=== PATIENT | female | born 1965 | race Caucasian/White ===

== ENCOUNTER 2017-05-11 09:48 | Inpatient (IN) | payer SELFPAY ==
[2017-05-11 10:08] LABS: Base Excess (BEa) -0.4 mEq/L (0 (+/-) 2.5); Hematocrit-ABG 39.6 % (36.0-47.0); Hemoglobin (Hb) 12.2 g/dL (12.0-16.0); O2 Tension (PaO2) 199.2 mmHg (80.0-100.0); pH, Arterial 7.22 (7.35-7.45)
[2017-05-11 10:09] LABS: Analyzer IN Cardio ER; Calcium, Ionized 1.3 mmol/L (1.12-1.30); Puncture Site RRA
[2017-05-11] MEDS ORDERED: fentaNYL Citrate/PF 2,000 MCG in Sodium Chloride 0.9% 60 ML IV SCH ×2 (10:16→13:48)
[2017-05-11] MEDS ORDERED: Fentanyl 100 MCG/2 ML VIAL ONE (10:17)
[2017-05-11 10:37] LABS: Bilirubin Small (Negative); Blood, Urine Large (Negative); Clarity CLOUDY (Clear); Glucose, Urine (Dipstick) Negative (Negative); Leukocyte Moderate (Negative); Nitrite Negative (Negative); Protein, Urine (Dipstick) 100 mg/dL (Neg-Trace); Specific Gravity, Urine 1.021 (1.002-1.036); pH, Urine 5.5 (5.0-9.0)
[2017-05-11 10:38] LABS: Bacteria/HPF 4+ HPF (None Seen); RBC/HPF 0-3 HPF (0-3); WBC/HPF 21-50 HPF (0-3)
[2017-05-11 10:43] LABS: Pathc Cast-AUWi Flag 3.15 (0-2.49); Yeast-AUWi Flag 100.5 (0-25.0)
[2017-05-11 10:56] LABS: Hyaline Casts/LPF 0-3 HYALINE CAST LPF (0-3 Hyaline); Manual Microscopic Reviewed? No Path Casts Seen; Yeast-All Forms 1+ HPF (None Seen)
[2017-05-11 11:01] LABS: #Lymphocytes 0.5 thou/uL (1.20-3.40); #Monocytes 0.9 thou/uL (0.11-0.59); #Neutrophils 6.5 thou/uL (1.40-6.50); %Basophils 0.3 % (0.0-1.0); %Eosinophils 0.3 % (0.0-10.0); %Monocytes 11.7 % (0.0-10.0); %Neutrophils 81.6 % (42.0-75.0); Hemoglobin 12.1 g/dL (12.0-16.0); Mean Corpuscular HGB CONC 30.4 g/dL (32.0-36.0); Mean Corpuscular Hemoglobin 29.4 pg (27.0-31.0); Mean Corpuscular Volume 96.9 fl (81.0-99.0); Mean Platelet Volume 9.5 fL (7.4-10.4); Platelet Count 155 thou/uL (130-400); RBC Distribution Width 17.7 % (11.5-14.5)
[2017-05-11 11:21] LABS: Actual Bicarbonate (HCO3a) 24.4 mEq/L (22-26); Base Excess (BEa) -0.4 mEq/L (0 (+/-) 2.5); CO2 Tension 60.3 mmHg (35.0-45.0); Hematocrit-ABG 39.4 % (36.0-47.0); Hemoglobin (Hb) 12.2 g/dL (12.0-16.0); O2 Tension (PaO2) 80.2 mmHg (80.0-100.0); pH, Arterial 7.23 (7.35-7.45)
[2017-05-11 11:22] LABS: ALV-art Gradient 557.425 (0-20); Analyzer IN Cardio ER; Calcium, Ionized 1.3 mmol/L (1.12-1.30); Puncture Site RRA
[2017-05-11 11:26] LABS: ALT (SGPT) 315 U/L (8-55); AST (SGOT) 627 U/L (5-34); Albumin 3.6 g/dL (3.5-5.0); Alkaline Phosphatase 218 U/L (40-150); Anion Gap 14 mmol/L (10-20); BUN (Urea Nitrogen) 38 mg/dL (9.8-20.1); Bilirubin, Total 0.5 mg/dL (0.2-1.2); CK (CPK) 349 U/L (29-168); Calc. Creatinine Clearance 0 mL/min (70-130); Calcium 8.8 mg/dL (7.8-10.44); Carbon Dioxide 24 mmol/L (22-29); Chloride 110 mmol/L (98-107); Estimated GFR-MDRD 38; Globulin 2.4 g/dL (2.4-3.5); Glucose 121 mg/dL (70-105); Potassium 6.1 mmol/L (3.5-5.1); Sodium 142 mmol/L (136-145)
[2017-05-11 11:30] LABS: Troponin I 1.572 ng/mL (< 0.028)
--- NOTE | 2017-05-11 11:31 | RAD ---
PORTABLE SUPINE FRONTAL CHEST RADIOGRAPH: Date: 05-11-17 Comparison: None. History: Evaluate chest following intubation. FINDINGS: Supine imaging is provided, limiting assessment for pneumothorax and pleural fluid. A nasogastric tub e extends into the left upper quadrant. There is an endotracheal tube projecting over the tracheal ai r column, terminating at the level of the clavicles. There is mild increased density in the right hilar region, significance uncertain on portable supine imaging. There is atherosclerotic calcification in the aortic arch. No lobar consolidation or alveola r edema. IMPRESSION: Endotracheal tube and nasogastric tube as above. Mild increased density in the right perihilar region is noted, nonspecific. Follow up PA and lateral chest imaging to further evaluate right hilum is adv ised when the patient is able. POS: [facility]
--- NOTE | 2017-05-11 11:44 | CT ---
HEAD CT WITHOUT CONTRAST: Date: 05-11-17 Comparison: None. History: Respiratory distress. Intubated patient. Prior history of stroke. Technique: Serial axial CT imaging at 5 mm intervals from the vertex through the skull base without c ontrast. FINDINGS: There is evidence of prior right frontal craniotomy. There is opacification of the anterior ethmoid a ir cells on the right. The paranasal sinuses and mastoid air cells are otherwise unremarkable. There are atherosclerotic calcification of the cavernous carotid arteries. There is no displaced calvarial fracture. No intracranial hemorrhage, midline shift, or mass effect seen. There is encephalomalacia within the frontal lobe on the right with a linear area of calcification suggesting extensive prior insult on th e basis of prior infarction and/or prior trauma. IMPRESSION: Post-operative changes within the right frontal region with right frontal lobe encephalomalacia. No i ntracranial hemorrhage. POS: [facility]
[2017-05-11] MEDS ORDERED: Azithromycin 500 MG in Sodium Chloride 0.9% 250 ML 250 ML IVPB ONE (13:15)
--- NOTE | 2017-05-11 13:31 | CT ---
CT ANGIOGRAM OF THE CHEST: History: Hypoxia. Patient was intubated by a flight crew. Respiratory distress. Comparison: None. Technique: CT angiogram of the chest was performed in the axial plane. Bilateral oblique and coronal 3D reformatted images are submitted for interpretation. FINDINGS: Note is made of an endotracheal and nasogastric tube. There are coronary calcifications. Heart size i s normal. No pericardial fluid. Limited evaluation of the aorta due to inadequate contrast opacificat ion. Mild fullness of the distal thoracic aorta. Upper solid organs are grossly unremarkable. There may be periportal edema, nonspecific. There are patchy opacities throughout the lung parenchyma. Multifocal infiltrate in the right upper l obe and right lower lobe is suspected. A agency sales representative opacity in the superior segment of the right lower lobe measures 2.0 x 1.6 cm. There is asymmetric prominent hyperinflation of the left lung with respect to the contralateral side. There is no pleural effusion or pneumothorax. There are no lytic or blastic lesions in the osseous structures. Adequate contrast opacification of the pulmonary arterial system to the level of the segmental arteri es. No filling defects to suggest thromboembolism. IMPRESSION: 1. No evidence of pulmonary artery embolis to the level of the segmental arteries. 2. Multifocal opacity predominately in the right lung which may represent edema or infiltrates. Chron ic changes cannot be excluded. There is hyperinflation of the left lung. Continued surveillance is re commended. POS: [facility]
[2017-05-11] MEDS ORDERED: DISCONTINUE PREVIOUS NARCOTIC PAIN MEDICATIONS AND BENZODIAZEPINES FS SCH (13:48)
[2017-05-11] MEDS ORDERED: Propofol 1,000 MG/100 ML VIAL IV PRN (13:48)
[2017-05-11] MEDS ORDERED: Lorazepam 2 MG/ML VIAL SLOW IVP PRN (13:48)
[2017-05-11] MEDS ORDERED: Morphine 4 MG/ML VIAL IV PRN (13:50)
[2017-05-11] MEDS ORDERED: Ondansetron HCl/PF 4 MG/2 ML Vial IVP PRN (13:52)
[2017-05-11] MEDS ORDERED: Ondansetron ODT 4 MG TAB PO PRN (13:52)
[2017-05-11] MEDS ORDERED: Acetaminophen 325 MG TAB PO PRN (13:53)
[2017-05-11] MEDS ORDERED: Lacri-Lube Opth Oint 3.5 GM TUBE EA EYE PRN (14:20)
--- NOTE | 2017-05-11 14:43 | CON ---
DATE OF CONSULTATION: 05/11/2017 SERVICE: Pulmonary Medicine. REASON FOR CONSULTATION: Respiratory failure. HISTORY OF PRESENT ILLNESS: The patient is a 52-year-old female. We do not know when she was last f ound in her usual state of health. Either way, she was found down at home. She was brought to the [facility] by emergency services and intubated on the scene, because of hypoxemia. She was not protecti ng her airway. She was extraordinarily hypoxemic when she arrived here. She was sent for a CT scan. Preliminary studies have not been too terribly revealing. She has extraordinarily high oxygen requ irements. We have no information on her in our system. PAST MEDICAL HISTORY: 1. History of stroke. 2. Brain aneurysm. 3. Chronic obstructive pulmonary disease. 4. Hypertension. 5. Dyslipidemia. 6. Coronary artery disease. PAST SURGICAL HISTORY: Brain surgery. ALLERGIES: Unknown. MEDICATIONS: Unknown. INPATIENT MEDICATIONS: Reviewed. FAMILY HISTORY: Unknown. SOCIAL HISTORY: Unknown. REVIEW OF SYSTEMS: This cannot be obtained as the patient is currently intubated and under the influ ence of some sedating medication. Furthermore, she remains encephalopathic. PHYSICAL EXAMINATION: VITAL SIGNS: Afebrile, pulse 95, blood pressure 139/67, respirations 20, saturation 92% on 90% FiO2 and a PEEP of 11. GENERAL: Patient is intubated. She is under the influence of sedation, but remains encephalopathic. HEENT: Normocephalic, atraumatic. Sclerae are white. Conjunctivae pink. Oral and nasal mucosa is moist without lesions. LUNGS: Poor air entry with a prolonged expiratory phase. She is not moving enough air to appreciate adventitious sounds. HEART: Normal rate. Regular. ABDOMEN: Soft, nontender, nondistended. Bowel sounds are positive. MUSCULOSKELETAL: No cyanosis or clubbing. There is 1+ pitting in the bilateral lower extremities. NEUROLOGIC: Her right pupil is equal, round, and reactive. She coughs and overbreathe the ventilato r. The left pupil does not work, but it is not symmetric or circular suggesting she may have had a p revious eye injury or trauma. She is not currently responding to noxious stimuli. GENITOURINARY: Jackson catheter in place. LABORATORY DATA: WBC 8.0, hemoglobin 12.1, platelets 155,000. PH 7.23, pCO2 of 60, pO2 of 80 on 100 % FiO2 and a PEEP of 5. AST and ALT are elevated. Alkaline phosphatase is also elevated, but less d ramatically so. Troponin 1.5. BNP 381, lactate 1.0. Potassium 6.1, sodium 142. Chloride 110. Cre atinine 1.44. Baseline is unknown. Urinalysis is positive for white blood cells, leukocyte esterase , bilirubin, and blood. There are negative nitrites, 4+ urine bacteria is present. IMAGIN. CT of the brain demonstrates postoperative changes in the right frontal region with right frontal lobe encephalomalacia. No intracranial hemorrhage is identified. 2. CTA of the chest demonstrates no evidence of a pulmonary embolism. She has an infiltrate in the right lower lobe, superior segment, and inferior segment. She also has a small infiltrate in the dep endent regions of the right middle lobe. The right upper lobe appears to be spared. There are emphy sematous changes throughout bilateral lung sanchez, otherwise. ASSESSMENT: 1. Acute hypoxic and hypercapnic respiratory failure. 2. Chronic obstructive pulmonary disease with exacerbation. 3. Right ventricular heart failure, apparent. 4. Elevated transaminases. 5. Qmt-EU-zdypnnsdi myocardial infarction. PLAN: Cardiology consultation will be placed. We will treat her COPD exacerbation and also put her on antibiotics for community-acquired pneumonia. We will initiate a dose of Lasix. We will do [facility] hoscopy to assess for an endobronchial lesion. I will repeat an EKG given some ST changes on our tel emetry that were not evident earlier on the EKG. Urine drug screen will be obtained. Pulmonary Crit ical Care will continue to follow while the patient remains in this location. I do suspect that the elevated AST and ALT are coming from right-sided volume overload, as demonstrated on the CT of the est. Echo will be obtained in a couple of days.
[2017-05-11] MEDS ORDERED: Furosemide 40 MG/4 ML VIAL SLOW IVP SCH (14:45)
[2017-05-11 15:13] LABS: Troponin I 3.717 ng/mL (< 0.028)
--- NOTE | 2017-05-11 16:18 | ULT ---
RIGHT UPPER QUADRANT ULTRASOUND: 05/11/17 HISTORY: Elevated LFTs. FINDINGS: The liver measures 16 cm in length. No focal mass is identified. The patient is post cholecystectomy. The common duct measures 16 mm in diameter. There is mild intrahepatic biliary ductal dilatation. A small amount of free fluid in seen adjacent to the liver. The right kidney is unremarkable. No free f luid is seen in Melchor's pouch. Visualized portions of the pancreas are unremarkable. IMPRESSION: 1. Status post cholecystectomy with biliary ductal dilation. 2. Small amount of free fluid adjacent to the liver. POS: [facility]
[2017-05-11 16:55] LABS: Amphetamine Not Detected (NotDetected); Barbiturates Screen Not Detected (NotDetected); Benzodiazepine Screen Detected (NotDetected); Cocaine Metabolite Screen Not Detected (NotDetected); Medtox Control Line Valid? VALID (VALID); Medtox Reader # READER 1; Methadone Not Detected (NotDetected); Methamphetamine Not Detected (NotDetected); Opiate Screen Not Detected (NotDetected); Oxycodone Screen Not Detected (NotDetected); Phencyclidine (PCP) Not Detected (NotDetected); THC/Cannabinoid Screen Not Detected (NotDetected); Tricyclic Screen Not Detected (NotDetected)
[2017-05-11] MEDS ORDERED: ISOVUE-370 76%-LOCM 1 ML ONE (16:55)
[2017-05-11 17:26] LABS: Troponin I 7.193 ng/mL (< 0.028)
[2017-05-11] MEDS ORDERED: Piperacillin/Tazobactam 2.25 GM in Sodium Chloride 0.9% 100 ML IVPB SCH (18:00)
[2017-05-11] MEDS: Piperacillin/Tazobactam 4.5 GM in Sodium Chloride 0.9% 100 ML IVPB SCH (18:02)
[2017-05-11] MEDS ORDERED: Enoxaparin Sodium 60 MG/0.6 ML SYRINGE SC SCH (18:30)
--- NOTE | 2017-05-11 18:31 | HP ---
DATE OF ADMISSION: 05/11/2017 CHIEF COMPLAINT: The patient found unconscious at home. HISTORY OF PRESENT ILLNESS: This is a 52-year-old white female with a known history of COPD, chronic smoker, and history of home oxygen. The patient had an episode at home where EMS was called by catherine hope and when the EMS arrived, the patient was slumped over in the chair, not breathing, and she was immediately intubated, but had a normal pulse and had very low blood pressures in 50/28, so the annmarie nt was immediately brought to the ER. She consistently had low saturations of 64% even with intubati on. With suspicion for aspiration, the patient was immediately taken for bronchoscopy as Dr. Keane was consulted from the ER. During bronchoscopy, it was noted on the report that the patient had a p ossible aspiration with food particles being extracted. The patient had a very low blood pressure in 50/28, he was started on Levophed drip in the ER after giving a bunch of fluids. The patient also h ad elevated troponin of 1.59 and there was also suspicion for pulmonary embolism, so CT of the chest was done which ruled out any evidence of pulmonary embolism. Dr. Medeiros was consulted from the ER for elevated troponins and the patient had a normal EKG. Echo was good with good ejection fraction. The patient was then transferred to the ICU and was closely monitored and she was on Levophed drip. I discussed with the patient's mother at home who actually mentioned the patient had a power of atto rney, who is her [id number], but again spoke to the patient's oldest daughter who said the annmarie reyes did not have any medical power of senior trial attorney and explained that the patient's mother is not a reliab le historian. PAST MEDICAL HISTORY: Chronic obstructive pulmonary disease, history of stroke, history of brain ane urysm, history of hypertension, history of dyslipidemia, history of coronary artery disease. PAST SURGICAL HISTORY: Brain surgery in the past. ALLERGIES: Unknown. MEDICATIONS: Unknown. SOCIAL HISTORY: Unknown. Unable to get any of these above histories because no family member availa ble at the time of seeing the patient. SOCIAL HISTORY: The patient lives on her own in the apartment. She has a history of smoking. No hi story of alcohol. No history of illicit drug use. REVIEW OF SYSTEMS: Unable to obtain as the patient is intubated and no other family members was jose ramon at the time of patient examination while the patient in the ER. PHYSICAL EXAMINATION: VITAL SIGNS: The patient's blood pressures 58/28, heart rate of 130, respiratory rate of 18, and sat uration was 98% on 100% FIO2. HEENT: Atraumatic, normocephalic. PERRLA. Extraocular movements could not be assessed as the patie nt is sedated. CARDIOVASCULAR: S1, S2 normal. No murmurs, rubs or gallops. LUNGS: Bilateral air entry was equal. No wheezing, no crackles. ABDOMEN: Soft, nontender, no guarding, no rebound tenderness. Bowel sounds normal. MUSCULOSKELETAL: No calf tenderness. No pedal edema. No joint tenderness, no joint swelling. SKIN: No cyanosis, no erythema, no rash, no pallor. NEUROLOGIC: Could not be done. PSYCHIATRIC: Could not be done. NODES: No lymphadenopathy was noted. LABORATORY DATA: WBC 8.0, hemoglobin is 12.1, hematocrit is 39.8, platelets are 155. Sodium is 142, potassium is 6.1, BUN is 38, creatinine is 1.44. Troponin 3.7 and another level was 7.19. BNP was 381.2. A 2D echo was done and had an ejection fraction of 35%-40%. IMAGING: The brain CT was done and was unremarkable. Chest x-ray was done showing an evidence of ri ght-sided infiltrate with complete opacification of the right side. CTA chest was done showing no ev idence of any pulmonary embolism, but shows multifocal opacities predominant in the right lung. ASSESSMENT AND PLAN: 1. Acute hypoxic respiratory failure. 2. Septic shock. 3. Right lung aspiration pneumonia. 4. Chronic obstructive pulmonary disease. 5. Non-ST elevation myocardial infarction. 6. History of stroke. PLAN: 1. Plan is to continue to monitor the patient in the ICU and follow with critical care recommendatio ns. We will continue the mechanical ventilation at this time and the patient's code status is FULL C ODE based on discussion with the patient's daughter. 2. The patient is septic with elevated lactic acid. We will continue the patient on Levophed drip a t this time and continue IV antibiotics. The patient has been started on levofloxacin, Zosyn, and va ncomycin to cover major bacteria. 3. The patient has evidence of right aspiration pneumonia based on the bronchoscopy findings. 4. We will continue to follow critical care recommendations. 5. The patient has markedly elevated troponins, most likely either this could be a demand ischemia o r there could be a myocardial infarction going on at this time. Dr. Medeiros has been consulted and seen the patient in the ER. During the echo, we will follow with his recommendations at this time. The patient is very critical at this time because of the worsening troponins and low blood pressures and severe hypoxia. 6. The patient has elevated potassium. We will give Kayexalate though the NG tube. 7. History of stroke. 8. History of COPD. We will start the patient on stress. We will continue to follow with pulmonary recommendations. The patient may need stress dose of steroids, do not know her home medications. 9. DVT prophylaxis, Lovenox. We will continue with 1 mg/kg Lovenox. I spent 75 minutes of this patient of this 1-hour was critical care time.
[2017-05-11] MEDS ORDERED: Aspirin 325 MG TAB PER TUBE SCH (18:45)
[2017-05-11] MEDS ORDERED: Vancomycin HCl 1 GM in Sodium Chloride 0.9% 250 ML 250 ML IVPB SCH (21:00)
[2017-05-11] MEDS ORDERED: Atorvastatin Calcium 40 MG TAB PO SCH (21:00)
[2017-05-12 05:31] LABS: #Lymphocytes 0.5 thou/uL (1.20-3.40); #Monocytes 0.5 thou/uL (0.11-0.59); #Neutrophils 5.4 thou/uL (1.40-6.50); %Basophils 0.1 % (0.0-1.0); %Eosinophils 0.1 % (0.0-10.0); %Lymphocytes 7.8 % (21.0-51.0); %Monocytes 8.3 % (0.0-10.0); %Neutrophils 83.6 % (42.0-75.0); Hemoglobin 12.5 g/dL (12.0-16.0); Mean Corpuscular HGB CONC 31.6 g/dL (32.0-36.0); Mean Corpuscular Hemoglobin 30.3 pg (27.0-31.0); Platelet Count 133 thou/uL (130-400); RBC Distribution Width 17.7 % (11.5-14.5); Red Blood Cell (RBC) Count 4.11 mill/uL (4.20-5.40); White Blood Cell (WBC) Count 6.4 thou/uL (4.8-10.8)
[2017-05-12 05:38] LABS: Magnesium 2.2 mg/dL (1.6-2.6); Phosphorus 4.4 mg/dL (2.3-4.7)
[2017-05-12] MEDS: Piperacillin/Tazobactam 4.5 GM in Sodium Chloride 0.9% 100 ML IVPB SCH ×6 (06:00→23:58)
[2017-05-12 07:47] LABS: Base Excess (BEa) -0.6 mEq/L (0 (+/-) 2.5); Hematocrit-ABG 37.1 % (36.0-47.0); Hemoglobin (Hb) 11.7 g/dL (12.0-16.0); O2 Tension (PaO2) 108.1 mmHg (80.0-100.0); pH, Arterial 7.32 (7.35-7.45)
[2017-05-12 07:48] LABS: Calcium, Ionized 1.3 mmol/L (1.12-1.30); Puncture Site L.R.
[2017-05-12] MEDS: Aspirin 325 MG TAB PO SCH (08:37)
[2017-05-12] MEDS: Atorvastatin Calcium 40 MG TAB PO SCH (08:37)
[2017-05-12] MEDS: Enoxaparin Sodium 60 MG/0.6 ML SYRINGE SC SCH ×2 (08:37→21:21)
[2017-05-12] MEDS: Furosemide 40 MG/4 ML VIAL SLOW IVP SCH (08:38)
[2017-05-12] MEDS ORDERED: Famotidine 40 MG/4 ML VIAL SLOW IVP SCH (09:00)
[2017-05-12] MEDS ORDERED: Lisinopril 2.5 MG TAB PO SCH (09:00)
--- NOTE | 2017-05-12 09:36 | RAD ---
CHEST ONE VIEW: History: 52-year-old female with history of respiratory insufficiency. FINDINGS: NG tube and endotracheal tubes in place. Atherosclerosis of the aorta. Minimal stable increased linea r and interstitial markings. No confluent pneumonia, overt edema, or pleural effusion. IMPRESSION: Stable chest. Continued short term follow up. POS: [facility]
--- NOTE | 2017-05-12 09:40 | CON ---
DATE OF CONSULTATION: 05/11/2017 ADMITTING PHYSICIAN: Bj Mckeon M.D. HISTORY OF PRESENT ILLNESS: The patient is a 52-year-old woman who suffered a respiratory arrest and required emergent intubation. The patient at this time is intubated. She however is responsive. The patient has apparently a long medical history. She has a previous history of apparently a subarachnoid hemorrhage. She has also a previous history of apparently cerebrovascular accident and a brain aneurysm. She also has a history of apparently coronary artery disease. The patient at this time is responsive. PAST MEDICAL HISTORY: CVA, brain aneurysm, hypertension. PAST SURGICAL HISTORY: SOCIAL HISTORY: Unknown. FAMILY HISTORY: Unknown. MEDICATIONS: Unknown. PHYSICAL EXAMINATION: GENERAL: Ill-appearing woman with a blood pressure of 96/61. NECK: Full. LUNGS: Coarse breath sounds bilateral. HEART: Regular rate and rhythm, normal S1, S2. ABDOMEN: Nondistended. LABORATORY DATA AND IMAGING: Sodium 142, potassium 6.1, chloride 110, bicarbonate 24, BUN 38, creatinine is 1.4, ALT was 315. CPK-MB 15. Troponin 1.5. White blood cell count 8.0, hemoglobin 12.1, hematocrit 39.8, platelets were 155. Her initial EKG revealed normal sinus rhythm with lead misplacement, but no acute ST-T wave changes. Follow up EKG revealed normal sinus rhythm with left ventricular hypertrophy. AST was 627. IMPRESSION: 1. Respiratory arrest. 2. History of a brain aneurysm. 3. History of cerebrovascular accident. 4. Non-ST elevation myocardial infarction. 5. Elevated left ventricular function test. PLAN: The patient presented with a respiratory arrest and she was noted to have evidence of elevated cardiac enzymes. Review of the EKG revealed no acute ST-T wave changes requiring acute emergent invasive evaluation. An echocardiogram was obtained in the emergency room. She was found to have moderate decrease in left ventricular systolic function with a markedly enlarged right ventricle. The patient underwent an emergent bronchoscopy. At this time, the patient is hypotensive, so we would avoid beta carito and JUANI inhibitor therapy. We will follow this patient with you through her hospitalization. Further recommendations to follow. VEENAD
[2017-05-12 09:50] LABS: Anion Gap 13 mmol/L (10-20); BUN (Urea Nitrogen) 47 mg/dL (9.8-20.1); Calc. Creatinine Clearance 46 mL/min (70-130); Carbon Dioxide 25 mmol/L (22-29); Chloride 111 mmol/L (98-107); Estimated GFR-MDRD 40; Glucose 106 mg/dL (70-105); Potassium 4.2 mmol/L (3.5-5.1); Sodium 145 mmol/L (136-145)
[2017-05-12 09:51] LABS: ALT (SGPT) 227 U/L (8-55); AST (SGOT) 171 U/L (5-34); Albumin 3.3 g/dL (3.5-5.0); Alkaline Phosphatase 138 U/L (40-150); Bilirubin, Direct 0.2 mg/dL (0.1-0.3); Bilirubin, Total 0.4 mg/dL (0.2-1.2); Protein, Total 5.5 g/dL (6.0-8.3)
[2017-05-12] MEDS: Nicotine 21 MG PATCH TOP SCH (13:36)
--- NOTE | 2017-05-12 14:38 | PDOC.PN ---
- Subjective Encounter Start Date: 05/12/17 Encounter Start Time: 14:00 patient is seen today, alert but disoriented. Discussed with daughter at bedside , Explained confusion is from UTI and Sepsis. - Objective Resuscitation Status: Resuscitation Status FULL:Full Resuscitation MAR Reviewed: Yes Vital Signs & Weight: Vital Signs (12 hours) Temp Pulse Resp BP Pulse Ox 05/12/17 13:26 87 27 H 96 05/12/17 12:00 98.1 F 93 L 05/12/17 10:00 99 18 156/81 H 05/12/17 09:18 86 149/80 H 05/12/17 08:00 15 05/12/17 07:34 88 130/75 05/12/17 07:33 88 15 96 05/12/17 07:15 98.3 F 92 15 95 05/12/17 07:00 98.3 F 05/12/17 06:00 15 05/12/17 04:00 99.2 F 15 Weight Weight 136 lb 3.931 oz Most Recent Monitor Data Heart Rate from ECG 94 NIBP 157/80 NIBP BP-Mean 123 Respiration from ECG 26 SpO2 89 I&O: 05/11/17 05/12/17 05/13/17 06:59 06:59 06:59 Intake Total 260 360 Output Total 1675 785 Balance -1415 -425 Result Diagrams: 05/12/17 04:44 05/12/17 09:20 Radiology Reviewed by me: Yes Phys Exam - Physical Examination HEENT: PERRLA, moist MMs Neck: no nodes, no JVD Respiratory: wheezing present Cardiovascular: RRR, no significant murmur Gastrointestinal: soft, non-tender Musculoskeletal: no edema, pulses present Neurological: non-focal, normal sensation Lymphatic: no nodes Psychiatric: normal affect Skin: no rash, normal turgor Dx/Plan (1) Septic shock Code(s): A41.9 - SEPSIS, UNSPECIFIED ORGANISM; R65.21 - SEVERE SEPSIS WITH SEPTIC SHOCK Status: Acute Comment: Resolved Now, off of Levofed (2) Acute UTI Code(s): N39.0 - URINARY TRACT INFECTION, SITE NOT SPECIFIED Status: Acute Comment: Pt will be continued on IV antibiotics at this Time, WBC remains Normal. (3) Acute and chronic respiratory failure with hypoxia Code(s): J96.21 - ACUTE AND CHRONIC RESPIRATORY FAILURE WITH HYPOXIA Status: Acute Comment: Remains on nasal Canula, pt is Extubnated this Morning, she is [place], can be moved to Floor if ok with Pulmonary. (4) Aspiration pneumonia Code(s): J69.0 - PNEUMONITIS DUE TO INHALATION OF FOOD AND VOMIT Status: Acute Comment: Bronch found a Food particles in right Bronchi. No evidence of pneumonia noted now. Continue with Neb treatments. (5) COPD (chronic obstructive pulmonary disease) Status: Acute Comment: Stable, no exacerbation now,. CO2 normal. - Plan cont current plan of care, plan discussed w/ family, continue antibiotics, PT/OT , social science research assistant, speech therapy, respiratory therapy, incentive spirometry, DVT proph w/lovenox * . - Discharge Day Encounter end time: 15:05 Review of Systems - Review of Systems Eyes: negative: Pain, Vision Change, Conjunctivae Inflammation, Eyelid Inflammation, Redness, Other ENT: negative: Ear Pain, Ear Discharge, Nose Pain, Nose Discharge, Nose Congestion, Mouth Pain, Mouth Swelling, Throat Pain, Throat Swelling, Other Respiratory: negative: Cough, Dry, Shortness of Breath, Hemoptysis, SOB with Excertion, Pleuritic Pain, Sputum, Wheezing Cardiovascular: negative: chest pain, palpitations, orthopnea, paroxysmal nocturnal dyspnea, edema, light headedness, other Genitourinary: negative: Dysuria, Frequency, Incontinence, Hematuria, Retention , Other - Medications/Allergies Allergies/Adverse Reactions: Allergies Allergy/AdvReac Type Severity Reaction Status Date / Time No Allergy Information Allergy Unverified 05/11/17 10:16 Available Medications: Current Medications Albuterol/Ipratropium (Duoneb) 3 ml NEB [id number] [facility] Last Admin: 05/12/17 13:26 Dose: 3 ml Aspirin (Aspirin) 325 mg PO QAM-WM [facility] Last Admin: 05/12/17 08:37 Dose: 325 mg Atorvastatin Calcium (Lipitor) 40 mg PO DAILY [facility] Last Admin: 05/12/17 08:37 Dose: 40 mg Enoxaparin Sodium (Lovenox) 60 mg SC 0900,2100 [facility] Last Admin: 05/12/17 08:37 Dose: 60 mg Famotidine (Pepcid) 20 mg SLOW IVP DAILY [facility] Last Admin: 05/12/17 10:18 Dose: 20 mg Furosemide (Lasix) 40 mg SLOW IVP DAILY [facility] Last Admin: 05/12/17 08:38 Dose: 40 mg Fentanyl Citrate 2,000 mcg/ (Sodium Chloride) 100 mls @ 0 mls/hr IV INF CHRISTY; Per Protocol PRN Reason: Protocol Stop: 06/10/17 13:48 Fentanyl Citrate (Fentanyl Bolus) 250 mls @ 0 mls/hr IVPB PRN PRN; As Directed PRN Reason: Breakthrough pain Stop: 06/10/17 13:48 Piperacillin Sod/Tazobactam (Sod 4.5 gm/ Sodium Chloride) 100 mls @ 200 mls/hr IVPB Q6HR [facility] Last Admin: 05/12/17 11:32 Dose: 100 mls Lisinopril (Zestril) 2.5 mg PO DAILY [facility] Last Admin: 05/12/17 09:18 Dose: 2.5 mg Methylprednisolone Sodium Succinate (Solu-Medrol) 40 mg IVP DAILY [facility] Last Admin: 05/12/17 08:38 Dose: 40 mg Mineral Oil/White Petrolatum (Lacri-Lube Ointment) 0 gm EA EYE PRN PRN PRN Reason: Dry Eyes Nicotine (Nicoderm Patch) 21 mg TOP Q24HR [facility] Last Admin: 05/12/17 13:36 Dose: 21 mg Propofol (Diprivan) 1,000 mg IV INF PRN; Protocol PRN Reason: TO ACHIEVE JACOME SCORE 2-3 Stop: 06/10/17 13:48 Last Admin: 05/11/17 16:43 Dose: 1,000 mg Sodium Chloride (Flush - Normal Saline) 10 ml IVF Q12HR [facility] Last Admin: 05/12/17 08:37 Dose: 10 ml Sodium Chloride (Flush - Normal Saline) 10 ml IVF PRN PRN PRN Reason: Saline Flush Last Admin: 05/11/17 14:48 Dose: 10 ml
--- NOTE | 2017-05-12 20:53 | PRG ---
DATE OF SERVICE: 05/12/2017 SERVICE: Pulmonary Medicine. INTERVAL HISTORY: The patient is doing fine from a respiratory standpoint. This morning, she is rosie ke, but sleepy on a sedation holiday. When she wakes up a touch more, we will see whether or not she tolerated a spontaneous breathing trial. Her sats were a little bit marginal and slightly high requ irements. That being said, it was probably bad data. The probe was on her forehead and when we move d it to her ear, they actually improved a lot. There were no significant overnight events. PHYSICAL EXAMINATION: VITAL SIGNS: Afebrile, pulse 89, blood pressure 125/51, respirations 18, saturation 97% on 41% FIO2 and a PEEP of 5. GENERAL: Patient is somnolent. HEENT: Normocephalic, atraumatic. Sclerae are white, conjunctivae pink. Oral and nasal mucosa mois t without lesions. LUNGS: Decent air entry. There is not much of a prolonged expiratory phase. Minimal wheezing is pr esent. No rhonchi or crackles are appreciated. HEART: Normal rate, regular. ABDOMEN: Soft, nontender, nondistended. Bowel sounds are positive. MUSCULOSKELETAL: No cyanosis or clubbing. No pitting in the bilateral lower extremities. NEUROLOGIC: Nonfocal. LABORATORY DATA: WBC 6.4, hemoglobin 12.5, platelets 133,000. PH 7.32, PCO2 51, pO2 108. This was on 57% FiO2 and a PEEP of 9 at that time. Creatinine 1.38, which is gently down trending, BUN 47 and uptrending. Basic metabolic profile is otherwise unremarkable. Sodium 142. AST and ALT are precip itously down trending. Alkaline phosphatase has returned to the normal range. Troponin has increase d to 7.1, CRP 11.38. Urine drug screen was only positive for benzodiazepines, which she likely got i n the intubation process. IMAGIN. Chest x-ray demonstrates a stable chest. Endotracheal tube and enteric catheter are in good posi tion. No confluent consolidation is identified. 2. Echocardiogram demonstrates 35%-40% ejection fraction with akinesis of the apical wall of the lef t ventricle and a moderate concentric left ventricular hypertrophy. ASSESSMENT: 1. Acute hypoxic and hypercapnic respiratory failure, improving dramatically. 2. Chronic obstructive pulmonary disease with acute exacerbation. 3. Acute on chronic systolic and diastolic heart failure. 4. Non-ST elevation myocardial infarction. 5. Community-acquired pneumonia, likely following overt aspiration event. 6. Aspiration of hamburger meat. PLAN: The patient is going to complete her spontaneous breathing trial. If she meets criteria, extu bation will be considered in a short order. Pulmonary and Critical Care will continue to follow yadi shea we treat her COPD exacerbation and community-acquired pneumonia. Agree with Cardiology consultatio n. CRITICAL CARE TIME: 30 minutes.
[2017-05-13] MEDS ORDERED: HYDROcodone/Acetaminophen 10/325 mg Tablet PO SCH (05:30)
[2017-05-13 05:36] LABS: ALT (SGPT) 146 U/L (8-55); AST (SGOT) 73 U/L (5-34); Albumin 3.1 g/dL (3.5-5.0); Alkaline Phosphatase 100 U/L (40-150); Anion Gap 8 mmol/L (10-20); BUN (Urea Nitrogen) 38 mg/dL (9.8-20.1); Bilirubin, Direct 0.2 mg/dL (0.1-0.3); Bilirubin, Total 0.3 mg/dL (0.2-1.2); Calc. Creatinine Clearance 70 mL/min (70-130); Calcium 9.2 mg/dL (7.8-10.44); Carbon Dioxide 33 mmol/L (22-29); Chloride 109 mmol/L (98-107); Estimated GFR-MDRD 67; Glucose 92 mg/dL (70-105); Potassium 3.7 mmol/L (3.5-5.1); Protein, Total 5.1 g/dL (6.0-8.3); Sodium 146 mmol/L (136-145)
[2017-05-13] MEDS: Piperacillin/Tazobactam 4.5 GM in Sodium Chloride 0.9% 100 ML IVPB SCH (05:43)
[2017-05-13 05:56] LABS: #Lymphocytes 0.7 thou/uL (1.20-3.40); #Monocytes 0.4 thou/uL (0.11-0.59); #Neutrophils 3.1 thou/uL (1.40-6.50); %Basophils 0.3 % (0.0-1.0); %Eosinophils 0.5 % (0.0-10.0); %Lymphocytes 15.6 % (21.0-51.0); %Monocytes 9.6 % (0.0-10.0); %Neutrophils 74.1 % (42.0-75.0); Band 3 % (5-11); Hemoglobin 10.3 g/dL (12.0-16.0); Hypochromia SLIGHT = 6-15 cells (100X) (0-5/hpf); Lymphocytes 8 % (21-51); MDiff Complete? YES; Mean Corpuscular HGB CONC 31.2 g/dL (32.0-36.0); Mean Corpuscular Hemoglobin 29.1 pg (27.0-31.0); Mean Corpuscular Volume 93.2 fl (81.0-99.0); Mean Platelet Volume 8.9 fL (7.4-10.4); Monocytes 9 % (0-10); Neutrophil 75 % (42-75); PLT Morphology Comment Appears Decreased; Platelet Count 105 thou/uL (130-400); RBC Distribution Width 17.4 % (11.5-14.5); Reactive Lymphocytes 5 % (0-10); Red Blood Cell (RBC) Count 3.55 mill/uL (4.20-5.40); White Blood Cell (WBC) Count 4.2 thou/uL (4.8-10.8)
[2017-05-13] MEDS: Atorvastatin Calcium 40 MG TAB PO SCH (08:35)
[2017-05-13] MEDS: Furosemide 40 MG/4 ML VIAL SLOW IVP SCH (08:36)
[2017-05-13] MEDS: Enoxaparin Sodium 40 MG/0.4 ML SYRINGE SC SCH ×2 (08:53→20:34)
[2017-05-13] MEDS: Clopidogrel Bisulfate 75 MG TAB PO SCH (08:53)
[2017-05-13] MEDS: Lisinopril 5 MG TAB PO SCH ×2 (08:53→20:33)
[2017-05-13] MEDS ORDERED: Amiodarone 200 MG TAB PO SCH (09:00)
--- NOTE | 2017-05-13 10:03 | PRG ---
DATE OF SERVICE: 05/13/2017 SERVICE: Pulmonary Medicine. INTERVAL HISTORY: The patient is doing fine from cardiovascular and respiratory standpoint. She is breathing very comfortably this morning. She tolerated extubation quite well yesterday. Otherwise, there has been no interval change to her condition. PHYSICAL EXAMINATION: VITAL SIGNS: Afebrile, pulse 98, blood pressure 146/73, respirations 20, saturation 98% on 2 liters nasal cannula. GENERAL: The patient is awake and alert. No apparent distress. LUNGS: Decent air entry. The crackles are gone. There is prolonged expiratory phase. A little bit of a polyphonic wheezing still present. Rhonchi are better. HEART: Normal rate and regular. ABDOMEN: Soft, nontender, nondistended. Bowel sounds are positive. MUSCULOSKELETAL: No cyanosis or clubbing. There is trace to 1+ pitting in the bilateral lower extre mities. NEUROLOGIC: Grossly nonfocal. LABORATORY DATA: WBC 4.2, hemoglobin 33.0, and platelets 105,000. Creatinine 0.88 and improving. B UN 37, bicarbonate 33, which bumped up significantly, sodium 146. AST and ALT continued to improve. Blood cultures x2, respiratory culture, and urine culture are unremarkable. ASSESSMENT: 1. Acute hypoxic and hypercapnic respiratory failure, improving. 2. Chronic obstructive pulmonary disease with acute exacerbation. 3. Acute on chronic systolic and diastolic heart failure. 4. Non-ST elevation myocardial infarction. 5. Community-acquired pneumonia following overt aspiration event. 6. Aspiration of hamburger meat. DISCUSSION AND PLAN: I talked to the patient today, she does remember choking on a hamburger. Her m om was giving her some narcotic pain medications. It is my suspicion that patient may have taken a l ittle too much and got extra sleepy. Her mom was giving her these medications for restless legs synd hesham so far as the patient has suggested to me. Either way, she is doing fairly well. We are going to continue antibiotics, nebulized medications, and steroids. She can be transitioned to telemetry u nit. Pulmonary and Critical Care will continue to follow.
--- NOTE | 2017-05-13 15:01 | PDOC.PN ---
- Subjective Encounter Start Date: 05/13/17 Encounter Start Time: 13:00 Patient is seen today, c/o Right neck pain and back pain, She is Eating her lunch at this time. Alert and oriented. - Objective Resuscitation Status: Resuscitation Status FULL:Full Resuscitation MAR Reviewed: Yes Vital Signs & Weight: Vital Signs (12 hours) Temp Pulse Resp BP Pulse Ox 05/13/17 13:13 83 20 92 L 05/13/17 12:00 98.3 F 05/13/17 08:53 98 146/73 H 05/13/17 07:59 99 05/13/17 07:57 78 18 99 05/13/17 07:17 98.1 F 73 15 98 05/13/17 07:00 98.1 F 05/13/17 04:00 98.0 F Weight Weight 133 lb 2.547 oz Most Recent Monitor Data Heart Rate from ECG 74 NIBP 165/80 NIBP BP-Mean 101 Respiration from ECG 19 SpO2 97 I&O: 05/12/17 05/13/17 05/14/17 06:59 06:59 06:59 Intake Total 260 1700 240 Output Total 1677 1845 1900 Balance -5871 -958 -9067 Result Diagrams: 05/13/17 05:03 05/13/17 05:03 Radiology Reviewed by me: Yes Phys Exam - Physical Examination HEENT: PERRLA, moist MMs Neck: no nodes, no JVD Respiratory: no wheezing, no rales Cardiovascular: RRR, no significant murmur Gastrointestinal: soft, non-tender, no distention Musculoskeletal: no edema, pulses present Neurological: non-focal, normal sensation Lymphatic: no nodes Skin: no rash, normal turgor Dx/Plan (1) Septic shock Code(s): A41.9 - SEPSIS, UNSPECIFIED ORGANISM; R65.21 - SEVERE SEPSIS WITH SEPTIC SHOCK Status: Resolved Comment: Resolved Now, off of Levofed (2) Acute UTI Code(s): N39.0 - URINARY TRACT INFECTION, SITE NOT SPECIFIED Status: Acute Comment: Pt will be continued on IV antibiotics at this Time, WBC remains Normal. Cultures Still pending. No growth yet. pt is more alert atoday. (3) Acute and chronic respiratory failure with hypoxia Code(s): J96.21 - ACUTE AND CHRONIC RESPIRATORY FAILURE WITH HYPOXIA Status: Acute Comment: Remains on nasal Canula, she is [place], can be moved to Floor if ok with Pulmonary. (4) Aspiration pneumonia Code(s): J69.0 - PNEUMONITIS DUE TO INHALATION OF FOOD AND VOMIT Status: Acute Comment: Bronch found a Food particles in right Bronchi. No evidence of infiltrate noted now. Continue with Neb treatments. Continue to treat as aspiration pneumonia. (5) COPD (chronic obstructive pulmonary disease) Status: Acute Comment: Stable, no exacerbation now,. CO2 normal. - Plan cont current plan of care, continue antibiotics, social media content specialist, speech therapy , respiratory therapy, incentive spirometry, out of bed/ambulate, DVT proph w/ lovenox * . - Discharge Day Encounter end time: 13:35 Review of Systems - Review of Systems Constitutional: negative: fever, chills, sweats, weakness, malaise, other Eyes: negative: Pain, Vision Change, Conjunctivae Inflammation, Eyelid Inflammation, Redness, Other ENT: negative: Ear Pain, Ear Discharge, Nose Pain, Nose Discharge, Nose Congestion, Mouth Pain, Mouth Swelling, Throat Pain, Throat Swelling, Other Respiratory: negative: Cough, Dry, Shortness of Breath, Hemoptysis, SOB with Excertion, Pleuritic Pain, Sputum, Wheezing Cardiovascular: negative: chest pain, palpitations, orthopnea, paroxysmal nocturnal dyspnea, edema, light headedness, other Gastrointestinal: negative: Nausea, Vomiting, Abdominal Pain, Diarrhea, Constipation, Melena, Hematochezia, Other Musculoskeletal: negative: Neck Pain, Shoulder Pain, Arm Pain, Back Pain, Hand Pain, Leg Pain, Foot Pain, Other Skin: negative: Rash, Lesions, Barney, Bruising, Other - Medications/Allergies Allergies/Adverse Reactions: Allergies Allergy/AdvReac Type Severity Reaction Status Date / Time No Known Allergies Allergy Unverified 05/12/17 19:47 Medications: Current Medications Albuterol/Ipratropium (Duoneb) 3 ml NEB [id number] [facility] Last Admin: 05/13/17 13:13 Dose: 3 ml Amoxicillin/Clavulanate Potassium (Augmentin) 875 mg PO Q12HR [facility] Stop: 05/17/17 21:01 Aspirin (Aspirin Chewable) 81 mg PO QAM-WM [facility] Last Admin: 05/13/17 08:53 Dose: 81 mg Atorvastatin Calcium (Lipitor) 40 mg PO DAILY [facility] Last Admin: 05/13/17 08:35 Dose: 40 mg Clopidogrel Bisulfate (Plavix) 75 mg PO DAILY [facility] Last Admin: 05/13/17 08:53 Dose: 75 mg Enoxaparin Sodium (Lovenox) 40 mg SC 0900,2100 [facility] Last Admin: 05/13/17 08:53 Dose: 40 mg Furosemide (Lasix) 40 mg PO DAILY-AC [facility] Gabapentin (Neurontin) 300 mg PO HS [facility] Lisinopril (Zestril) 5 mg PO BID [facility] Last Admin: 05/13/17 08:53 Dose: 5 mg Nicotine (Nicoderm Patch) 21 mg TOP Q24HR [facility] Last Admin: 05/12/17 13:36 Dose: 21 mg Prednisone (Prednisone) 40 mg PO QAM-WM [facility] Stop: 05/16/17 08:01 Sodium Chloride (Flush - Normal Saline) 10 ml IVF Q12HR [facility] Last Admin: 05/13/17 09:04 Dose: 10 ml Sodium Chloride (Flush - Normal Saline) 10 ml IVF PRN PRN PRN Reason: Saline Flush Last Admin: 05/11/17 14:48 Dose: 10 ml
--- NOTE | 2017-05-13 16:53 | OP ---
DATE OF SERVICE: 05/13/2017 SERVICE: Pulmonary Medicine. PROCEDURE: Fiberoptic bronchoscopy with: 1. Visual airway inspection. 2. Bronchoalveolar lavage from the right lower lobe. 3. Therapeutic bronchoscopy with removal of foreign body. PREPROCEDURE DIAGNOSES: 1. Acute hypoxic respiratory failure. 2. Community-acquired pneumonia. POSTPROCEDURE DIAGNOSES: 1. Acute hypoxic respiratory failure. 2. Community-acquired pneumonia. 3. Foreign body (hamburger meat) aspiration. PROCEDURE HYDRAULIC RIVETER: Victorino Keane M.D. MEDICATIONS USED: Fentanyl 100 mcg IV push off pump. PREANESTHESIA ASSESSMENT: H&P had been performed. The patient's medications and allergies were revi ewed. Informed consent was implied as the patient was in acute respiratory failure with extraordinar sol high oxygen requirements. DESCRIPTION OF PROCEDURE Time out was performed identifying the correct procedure and patient with n jannie and date of . A diagnostic fiberoptic bronchoscope was introduced through the 7.0 endotrach eal tube. The bronchoscope was advanced into the trachea where a tracheobronchial tree inspection wa s carried out. There was clear identification of the right upper lobe, right middle lobe, right lowe r lobe, left upper lobe, lingula, and left lower lobe. Anatomy was normal to the segmental level tho ugh a hunk of hamburger meat was lodged in the proximal right lower lobe just past the right middle l obe takeoff. This was obstructing most of the superior segment of the right lower lobe, and all dist al segments to that branch point. This was extracted with biopsy forceps. A subsequent evaluation of the airway did not demonstrate any additional significant debris. A BAL was obtained from the right lower lobe. The bronchoscope was subsequently removed from the patient. FINDINGS: 1. No endobronchial disease was identified. 2. Soft tissue density was removed from the right lower lobe. It was clearly a foreign body and the appearance of hamburger meat. 3. Secretions were thick and purulent, but minimal. SPECIMENS OBTAINED: 1. Soft tissue density was sent for pathology. 2. Gram stain and culture on the BAL specimen from right lower lobe. COMPLICATIONS: None. ESTIMATED BLOOD LOSS: None FLUOROSCOPY TIME: None. DISPOSITION: The patient will remain in the ICU on mechanical ventilation.
[2017-05-13] MEDS: Nicotine 21 MG PATCH TOP SCH (17:04)
[2017-05-13] MEDS ORDERED: hydrALAZINE 20 MG/ML VIAL SLOW IVP PRN (19:59)
[2017-05-13] MEDS ORDERED: Mag-Al 1200 mg/1200 mg/30 ML UDCUP PO PRN (20:00)
[2017-05-13] MEDS: Calcium Carbonate 500 MG ChewTAB PO PRN (20:31)
[2017-05-13] MEDS: traMADol HCl 50 MG TAB PO PRN (20:32)
[2017-05-13] MEDS: Gabapentin 300 MG CAP PO SCH (20:33)
[2017-05-13] MEDS: Amoxicillin/Potassium Clav 875 MG TAB PO SCH (20:34)
[2017-05-13] MEDS: cloNIDine 0.1 MG TAB PO PRN (23:54)
[2017-05-14] MEDS: traMADol HCl 50 MG TAB PO PRN ×3 (00:43→10:24)
[2017-05-14] MEDS: Aspirin 325 MG TAB PO SCH (03:50)
[2017-05-14] MEDS: Calcium Carbonate 500 MG ChewTAB PO PRN ×3 (05:36→21:25)
[2017-05-14 05:52] LABS: #Lymphocytes 0.9 thou/uL (1.20-3.40); #Monocytes 0.5 thou/uL (0.11-0.59); #Neutrophils 4.1 thou/uL (1.40-6.50); %Basophils 0.7 % (0.0-1.0); %Eosinophils 0.7 % (0.0-10.0); %Lymphocytes 16.3 % (21.0-51.0); %Monocytes 8.8 % (0.0-10.0); %Neutrophils 73.6 % (42.0-75.0); Hemoglobin 12.1 g/dL (12.0-16.0); Mean Corpuscular HGB CONC 31.4 g/dL (32.0-36.0); Mean Corpuscular Hemoglobin 28.9 pg (27.0-31.0); Mean Corpuscular Volume 91.9 fl (81.0-99.0); Platelet Count 145 thou/uL (130-400); RBC Distribution Width 17.2 % (11.5-14.5); Red Blood Cell (RBC) Count 4.19 mill/uL (4.20-5.40); White Blood Cell (WBC) Count 5.5 thou/uL (4.8-10.8)
[2017-05-14 06:06] LABS: ALT (SGPT) 119 U/L (8-55); AST (SGOT) 42 U/L (5-34); Albumin 3.5 g/dL (3.5-5.0); Alkaline Phosphatase 103 U/L (40-150); Anion Gap 9 mmol/L (10-20); BUN (Urea Nitrogen) 20 mg/dL (9.8-20.1); Bilirubin, Direct 0.2 mg/dL (0.1-0.3); Bilirubin, Total 0.5 mg/dL (0.2-1.2); Calc. Creatinine Clearance 93 mL/min (70-130); Calcium 10.3 mg/dL (7.8-10.44); Carbon Dioxide 35 mmol/L (22-29); Chloride 103 mmol/L (98-107); Estimated GFR-MDRD Greater than 90; Glucose 97 mg/dL (70-105); Potassium 3.3 mmol/L (3.5-5.1); Protein, Total 5.9 g/dL (6.0-8.3); Sodium 144 mmol/L (136-145)
[2017-05-14] MEDS ORDERED: Furosemide 40 MG TAB PO SCH ×3 (07:30→16:00)
[2017-05-14] MEDS ORDERED: Lisinopril 5 MG TAB PO SCH (08:45)
[2017-05-14] MEDS: predniSONE 20 MG TAB PO SCH (10:25)
[2017-05-14] MEDS: Amoxicillin/Potassium Clav 875 MG TAB PO SCH ×2 (10:25→21:23)
[2017-05-14] MEDS: Atorvastatin Calcium 40 MG TAB PO SCH (10:26)
[2017-05-14] MEDS: Clopidogrel Bisulfate 75 MG TAB PO SCH (10:26)
[2017-05-14] MEDS: Potassium Chloride 20 MEQ TAB PO SCH ×2 (10:27→13:35)
[2017-05-14] MEDS: Enoxaparin Sodium 40 MG/0.4 ML SYRINGE SC SCH (10:28)
[2017-05-14] MEDS: Lisinopril 10 MG TAB PO SCH ×2 (12:04→21:24)
--- NOTE | 2017-05-14 13:21 | RAD ---
PORTABLE FRONTAL CHEST RADIOGRAPH: 05/14/2017 HISTORY: Shortness of breath with aspiration. COMPARISON: 05/12/2017 FINDINGS: There is patchy increased density in the inferior right lung base, superior to the right hemidiaphrag m, suggesting nonspecific infiltrate or volume loss. Heart and mediastinal contours are prominent, w ith tortuosity of the thoracic aorta. There is atherosclerotic calcification of the aortic arch. Th ere is no pneumothorax. No large volume pleural effusion or lobar consolidation. IMPRESSION: Nonspecific patchy opacity in the right lung base may represent mild infiltrate or volume loss. POS: [facility]
[2017-05-14] MEDS: HYDROcodone/Acetaminophen 5/325 mg Tablet PO PRN ×3 (13:32→23:46)
[2017-05-14] MEDS ORDERED: guaiFENesin ER 600 MG TAB PO SCH (15:45)
--- NOTE | 2017-05-14 15:54 | PDOC.PN ---
- Subjective Encounter Start Date: 05/14/17 Encounter Start Time: 10:00 Taj is sen today, very weak, she is more alert now, she remains on oxygen, with Weezy lungs. - Objective Resuscitation Status: Resuscitation Status FULL:Full Resuscitation MAR Reviewed: Yes Vital Signs & Weight: Vital Signs (12 hours) Temp Pulse Pulse Pulse Resp BP BP 05/14/17 14:40 81 82 152/89 H 05/14/17 13:14 80 20 05/14/17 12:04 157/89 H 05/14/17 12:00 98.4 F 77 14 05/14/17 08:01 98.6 F 78 16 05/14/17 08:00 98.6 F 78 16 05/14/17 06:49 05/14/17 06:47 79 20 05/14/17 04:00 98.2 F 74 14 BP BP BP Pulse Ox 05/14/17 14:40 149/84 H 05/14/17 13:14 05/14/17 12:04 05/14/17 12:00 157/89 H 05/14/17 08:01 162/79 H 96 05/14/17 08:00 97 05/14/17 06:49 100 05/14/17 06:47 100 05/14/17 04:00 178/85 H Weight Weight 111 lb 8 oz Most Recent Monitor Data Heart Rate from ECG 74 NIBP 165/80 NIBP BP-Mean 101 Respiration from ECG 19 SpO2 97 I&O: 05/13/17 05/14/17 05/15/17 06:59 06:59 06:59 Intake Total 1700 750 Output Total 1845 3575 Balance -145 -2825 Result Diagrams: 05/14/17 05:40 05/14/17 05:40 Radiology Reviewed by me: Yes EKG Reviewed by me: Yes Phys Exam - Physical Examination HEENT: PERRLA, moist MMs Neck: no nodes, no JVD Respiratory: wheezing present Cardiovascular: RRR, no significant murmur Gastrointestinal: soft, non-tender Musculoskeletal: no edema, pulses present Neurological: non-focal, normal sensation Psychiatric: normal affect, A&O x 3 Skin: no rash, normal turgor Dx/Plan (1) Septic shock Code(s): A41.9 - SEPSIS, UNSPECIFIED ORGANISM; R65.21 - SEVERE SEPSIS WITH SEPTIC SHOCK Status: Resolved Comment: Resolved Now, off of Levofed (2) Acute UTI Code(s): N39.0 - URINARY TRACT INFECTION, SITE NOT SPECIFIED Status: Acute Comment: Pt will be continued on IV antibiotics at this Time, WBC remains Normal. Cultures Still pending. No growth yet. pt is more alert atoday. (3) Acute and chronic respiratory failure with hypoxia Code(s): J96.21 - ACUTE AND CHRONIC RESPIRATORY FAILURE WITH HYPOXIA Status: Acute Comment: Remains on nasal Canula, Persistantly Weezy, Will repeat chest xray to look for any woreing Pneumonia. (4) Aspiration pneumonia Code(s): J69.0 - PNEUMONITIS DUE TO INHALATION OF FOOD AND VOMIT Status: Acute Comment: Bronch found a Food particles in right Bronchi. No evidence of infiltrate noted now. Continue with Neb treatments. Continue to treat as aspiration pneumonia. (5) COPD (chronic obstructive pulmonary disease) Status: Acute Comment: Stable, no exacerbation now,. CO2 normal. - Plan cont current plan of care, continue antibiotics, PT/OT, respiratory therapy, incentive spirometry, DVT proph w/lovenox * . - Discharge Day Encounter end time: 10:30 Review of Systems - Review of Systems Constitutional: negative: fever, chills, sweats, weakness, malaise, other Eyes: negative: Pain, Vision Change, Conjunctivae Inflammation, Eyelid Inflammation, Redness, Other ENT: negative: Ear Pain, Ear Discharge, Nose Pain, Nose Discharge, Nose Congestion, Mouth Pain, Mouth Swelling, Throat Pain, Throat Swelling, Other Respiratory: negative: Cough, Dry, Shortness of Breath, Hemoptysis, SOB with Excertion, Pleuritic Pain, Sputum, Wheezing Cardiovascular: negative: chest pain, palpitations, orthopnea, paroxysmal nocturnal dyspnea, edema, light headedness, other Gastrointestinal: negative: Nausea, Vomiting, Abdominal Pain, Diarrhea, Constipation, Melena, Hematochezia, Other Genitourinary: negative: Dysuria, Frequency, Incontinence, Hematuria, Retention , Other Musculoskeletal: negative: Neck Pain, Shoulder Pain, Arm Pain, Back Pain, Hand Pain, Leg Pain, Foot Pain, Other Skin: negative: Rash, Lesions, Barney, Bruising, Other - Medications/Allergies Allergies/Adverse Reactions: Allergies Allergy/AdvReac Type Severity Reaction Status Date / Time No Known Allergies Allergy Unverified 05/12/17 19:47 Medications: Current Medications Hydrocodone Bitart/Acetaminophen ([place] 5/325) 1 tab PO Q4H PRN PRN Reason: Breakthrough Pain Last Admin: 05/14/17 13:32 Dose: 1 tab Al Hydroxide/Mg Hydroxide (Maalox) 30 ml PO Q4H PRN PRN Reason: Heartburn or Indigestion Albuterol/Ipratropium (Duoneb) 3 ml NEB [id number] [facility] Last Admin: 05/14/17 13:14 Dose: 3 ml Amoxicillin/Clavulanate Potassium (Augmentin) 875 mg PO Q12HR [facility] Stop: 05/17/17 21:01 Last Admin: 05/14/17 10:25 Dose: 875 mg Aspirin (Aspirin Chewable) 81 mg PO QAM-[facility] Last Admin: 05/14/17 10:26 Dose: 81 mg Atorvastatin Calcium (Lipitor) 40 mg PO DAILY [facility] Last Admin: 05/14/17 10:26 Dose: 40 mg Calcium Carbonate (Tums) 1,000 mg PO Q4H PRN PRN Reason: Heartburn or Indigestion Last Admin: 05/14/17 05:36 Dose: 1,000 mg Clonidine (Catapres) 0.1 mg PO Q4H PRN PRN Reason: SBP >160 Last Admin: 05/13/17 23:54 Dose: 0.1 mg Clopidogrel Bisulfate (Plavix) 75 mg PO DAILY [facility] Last Admin: 05/14/17 10:26 Dose: 75 mg Enoxaparin Sodium (Lovenox) 40 mg SC 0900 [facility] Last Admin: 05/14/17 10:28 Dose: 40 mg Furosemide (Lasix) 20 mg PO NOW [facility] Stop: 05/14/17 17:00 Furosemide (Lasix) 20 mg PO DAILY-AC [facility] Gabapentin (Neurontin) 300 mg PO HS [facility] Last Admin: 05/13/17 20:33 Dose: 300 mg Guaifenesin (Mucinex) 1,200 mg PO Q12HR [facility] Guaifenesin (Mucinex) 600 mg PO ONE [facility] Stop: 05/14/17 17:00 Hydralazine HCl (Apresoline) 10 mg SLOW IVP Q4H PRN PRN Reason: SBP>170 Last Admin: 05/13/17 20:30 Dose: 10 mg Lisinopril (Zestril) 10 mg PO BID [facility] Last Admin: 05/14/17 12:04 Dose: 10 mg Nicotine (Nicoderm Patch) 21 mg TOP Q24HR [facility] Last Admin: 05/13/17 17:04 Dose: 21 mg Prednisone (Prednisone) 40 mg PO QAM-WM [facility] Stop: 05/16/17 08:01 Last Admin: 05/14/17 10:25 Dose: 40 mg Sodium Chloride (Flush - Normal Saline) 10 ml IVF Q12HR [facility] Last Admin: 05/14/17 10:26 Dose: 10 ml Sodium Chloride (Flush - Normal Saline) 10 ml IVF PRN PRN PRN Reason: Saline Flush Last Admin: 05/11/17 14:48 Dose: 10 ml Tramadol HCl (Ultram) 50 mg PO Q4H PRN PRN Reason: moderate pain Last Admin: 05/14/17 10:24 Dose: 50 mg
[2017-05-14] MEDS: Nicotine 21 MG PATCH TOP SCH (16:28)
[2017-05-14] MEDS ORDERED: Clopidogrel Bisulfate 75 MG TAB ONE (20:16)
[2017-05-14] MEDS: Gabapentin 300 MG CAP PO SCH (21:23)
[2017-05-14] MEDS: guaiFENesin ER 600 MG TAB PO SCH (21:24)
[2017-05-15] MEDS: cloNIDine 0.1 MG TAB PO PRN (02:49)
[2017-05-15] MEDS: Calcium Carbonate 500 MG ChewTAB PO PRN ×5 (02:50→22:01)
[2017-05-15 05:53] VITALS: BMI 19.5
[2017-05-15] MEDS: Enoxaparin Sodium 40 MG/0.4 ML SYRINGE SC SCH (09:44)
[2017-05-15] MEDS: Furosemide 40 MG TAB PO SCH (09:45)
[2017-05-15] MEDS: Amoxicillin/Potassium Clav 875 MG TAB PO SCH ×2 (09:45→20:33)
[2017-05-15] MEDS: predniSONE 20 MG TAB PO SCH (09:45)
[2017-05-15] MEDS: Clopidogrel Bisulfate 75 MG TAB PO SCH (09:45)
[2017-05-15] MEDS: guaiFENesin ER 600 MG TAB PO SCH ×2 (09:46→20:34)
[2017-05-15] MEDS: Atorvastatin Calcium 40 MG TAB PO SCH (09:46)
[2017-05-15] MEDS: Lisinopril 10 MG TAB PO SCH ×2 (09:46→20:33)
[2017-05-15] MEDS: HYDROcodone/Acetaminophen 5/325 mg Tablet PO PRN ×4 (09:53→22:02)
[2017-05-15] MEDS: Nicotine 21 MG PATCH TOP SCH (13:34)
--- NOTE | 2017-05-15 14:25 | PRG ---
DATE OF SERVICE: 05/15/2017 SUBJECTIVE: The patient is doing better. OBJECTIVE: VITAL SIGNS: Temperature 98.3, pulse 85, respirations 20, O2 sat 92% on 3 liters, blood pressure 163 /83. HEENT: Unremarkable. NECK: No JVD. LUNGS: Coarse breath sounds, especially on the left. CARDIAC: S1 and S2 regular. ABDOMEN: Soft. EXTREMITIES: No edema. ASSESSMENT: 1. Status post aspiration of food contents. 2. Acute on chronic hypoxic respiratory failure. 3. Chronic obstructive pulmonary disease exacerbation. PLAN: 1. She needs to get out of bed and increase her activity as tolerated. Continue the antibiotics, ne bulization treatments, and low flow oxygen. 2. Continue prednisone. 3. We would anticipate her being able to go home early next week.
--- NOTE | 2017-05-15 16:07 | PDOC.PN ---
- Subjective Encounter Start Date: 05/15/17 Encounter Start Time: 09:30 Patient is seen today, She is on Oxygen 3-4 liiters, She is Not on home oxygen, . worseing Wheezing Noted both lungs Right> left. - Objective Resuscitation Status: Resuscitation Status FULL:Full Resuscitation MAR Reviewed: Yes Vital Signs & Weight: Vital Signs (12 hours) Temp Pulse Resp BP BP Pulse Ox 05/15/17 14:10 88 24 H 05/15/17 14:05 88 24 H 05/15/17 10:00 98.3 F 85 20 163/83 H 92 L 05/15/17 09:46 171/83 H 05/15/17 08:00 98.3 F 85 20 92 L 05/15/17 06:44 95 05/15/17 06:40 69 20 95 Weight Weight 110 lb 3.2 oz Most Recent Monitor Data Heart Rate from ECG 74 NIBP 165/80 NIBP BP-Mean 101 Respiration from ECG 19 SpO2 97 I&O: 05/14/17 05/15/17 05/16/17 06:59 06:59 06:59 Intake Total 750 1220 480 Output Total 3575 1200 Balance -2825 20 480 Result Diagrams: 05/14/17 05:40 05/14/17 05:40 Radiology Reviewed by me: Yes (Right Lower base infiltatre.) EKG Reviewed by me: Yes Phys Exam - Physical Examination HEENT: PERRLA, moist MMs Neck: no nodes, no JVD Respiratory: wheezing present Cardiovascular: RRR, no significant murmur Gastrointestinal: soft, non-tender, no distention Musculoskeletal: no edema, pulses present Neurological: non-focal, normal sensation Lymphatic: no nodes Psychiatric: normal affect, A&O x 3 Dx/Plan (1) Septic shock Code(s): A41.9 - SEPSIS, UNSPECIFIED ORGANISM; R65.21 - SEVERE SEPSIS WITH SEPTIC SHOCK Status: Resolved Comment: Resolved Now, off of Levofed (2) Acute UTI Code(s): N39.0 - URINARY TRACT INFECTION, SITE NOT SPECIFIED Status: Acute Comment: Pt will be continued on IV antibiotics at this Time, WBC remains Normal. Cultures Still pending. No growth yet. pt is more alert atoday. (3) Acute and chronic respiratory failure with hypoxia Code(s): J96.21 - ACUTE AND CHRONIC RESPIRATORY FAILURE WITH HYPOXIA Status: Acute Comment: Remains on nasal Canula, Persistantly Weezy, Xray showed right Infiltatre as expected from Aspiration, Pt is on 3-4 liters nasal canula, need home oxygen. (4) Aspiration pneumonia Code(s): J69.0 - PNEUMONITIS DUE TO INHALATION OF FOOD AND VOMIT Status: Acute Comment: Continue with Neb treatments. Continue to for aspiration pneumonia. Will do Chest PT today, pt unable to get Secretions out. Acapella should help too. (5) COPD (chronic obstructive pulmonary disease) Status: Acute Comment: Stable, no exacerbation now,. CO2 normal. - Plan cont current plan of care, continue antibiotics, PT/OT, renal social worker, respiratory therapy, incentive spirometry, DVT proph w/lovenox * . - Discharge Day Encounter end time: 10:05 Review of Systems - Review of Systems Eyes: negative: Pain, Vision Change, Conjunctivae Inflammation, Eyelid Inflammation, Redness, Other ENT: negative: Ear Pain, Ear Discharge, Nose Pain, Nose Discharge, Nose Congestion, Mouth Pain, Mouth Swelling, Throat Pain, Throat Swelling, Other Respiratory: Shortness of Breath, SOB with Excertion, Sputum, Wheezing Cardiovascular: negative: chest pain, palpitations, orthopnea, paroxysmal nocturnal dyspnea, edema, light headedness, other Gastrointestinal: negative: Nausea, Vomiting, Abdominal Pain, Diarrhea, Constipation, Melena, Hematochezia, Other Genitourinary: negative: Dysuria, Frequency, Incontinence, Hematuria, Retention , Other Musculoskeletal: negative: Neck Pain, Shoulder Pain, Arm Pain, Back Pain, Hand Pain, Leg Pain, Foot Pain, Other Skin: negative: Rash, Lesions, Barney, Bruising, Other - Medications/Allergies Allergies/Adverse Reactions: Allergies Allergy/AdvReac Type Severity Reaction Status Date / Time No Known Allergies Allergy Unverified 05/12/17 19:47 Medications: Current Medications Hydrocodone Bitart/Acetaminophen ([place] 5/325) 1 tab PO Q4H PRN PRN Reason: Breakthrough Pain Last Admin: 05/15/17 13:34 Dose: 1 tab Al Hydroxide/Mg Hydroxide (Maalox) 30 ml PO Q4H PRN PRN Reason: Heartburn or Indigestion Albuterol/Ipratropium (Duoneb) 3 ml NEB [id number] CHRISTY Last Admin: 05/15/17 14:05 Dose: 3 ml Amoxicillin/Clavulanate Potassium (Augmentin) 875 mg PO Q12HR [facility] Stop: 05/17/17 21:01 Last Admin: 05/15/17 09:45 Dose: 875 mg Aspirin (Aspirin Chewable) 81 mg PO [facility] Last Admin: 05/15/17 09:46 Dose: 81 mg Atorvastatin Calcium (Lipitor) 40 mg PO DAILY [facility] Last Admin: 05/15/17 09:46 Dose: 40 mg Calcium Carbonate (Tums) 1,000 mg PO Q4H PRN PRN Reason: Heartburn or Indigestion Last Admin: 05/15/17 13:34 Dose: 1,000 mg Clonidine (Catapres) 0.1 mg PO Q4H PRN PRN Reason: SBP >160 Last Admin: 05/15/17 02:49 Dose: 0.1 mg Clopidogrel Bisulfate (Plavix) 75 mg PO DAILY [facility] Last Admin: 05/15/17 09:45 Dose: 75 mg Enoxaparin Sodium (Lovenox) 40 mg SC 0900 [facility] Last Admin: 05/15/17 09:44 Dose: 40 mg Furosemide (Lasix) 20 mg PO DAILY-AC [facility] Last Admin: 05/15/17 09:45 Dose: 20 mg Gabapentin (Neurontin) 100 mg PO TID [facility] Guaifenesin (Mucinex) 1,200 mg PO Q12HR [facility] Last Admin: 05/15/17 09:46 Dose: 1,200 mg Hydralazine HCl (Apresoline) 10 mg SLOW IVP Q4H PRN PRN Reason: SBP>170 Last Admin: 05/13/17 20:30 Dose: 10 mg Lisinopril (Zestril) 10 mg PO BID [facility] Last Admin: 05/15/17 09:46 Dose: 10 mg Nicotine (Nicoderm Patch) 21 mg TOP Q24HR [facility] Last Admin: 05/15/17 13:34 Dose: 21 mg Prednisone (Prednisone) 40 mg PO [facility] Stop: 05/16/17 08:01 Last Admin: 05/15/17 09:45 Dose: 40 mg Sodium Chloride (Flush - Normal Saline) 10 ml IVF Q12HR [facility] Last Admin: 05/15/17 09:47 Dose: 10 ml Sodium Chloride (Flush - Normal Saline) 10 ml IVF PRN PRN PRN Reason: Saline Flush Last Admin: 05/11/17 14:48 Dose: 10 ml Tramadol HCl (Ultram) 50 mg PO Q4H PRN PRN Reason: moderate pain Last Admin: 05/14/17 10:24 Dose: 50 mg
[2017-05-15] MEDS: Gabapentin 100 MG CAP PO SCH ×2 (16:39→20:33)
[2017-05-15] MEDS: traMADol HCl 50 MG TAB PO PRN (16:55)
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
[2017-05-15] MEDS: ALPRAZolam 0.25 MG TAB PO PRN (20:33)
[2017-05-16] MEDS: cloNIDine 0.1 MG TAB PO PRN ×2 (00:52→12:28)
[2017-05-16] MEDS: HYDROcodone/Acetaminophen 5/325 mg Tablet PO PRN ×5 (02:28→20:41)
[2017-05-16] MEDS: Calcium Carbonate 500 MG ChewTAB PO PRN ×3 (02:29→12:28)
[2017-05-16] MEDS: Furosemide 40 MG TAB PO SCH (08:27)
[2017-05-16] MEDS: Lisinopril 10 MG TAB PO SCH ×2 (08:28→20:38)
[2017-05-16] MEDS: Atorvastatin Calcium 40 MG TAB PO SCH (08:28)
[2017-05-16] MEDS: Gabapentin 100 MG CAP PO SCH ×3 (08:28→20:36)
[2017-05-16] MEDS: Clopidogrel Bisulfate 75 MG TAB PO SCH (08:29)
[2017-05-16] MEDS: predniSONE 20 MG TAB PO SCH (08:29)
[2017-05-16] MEDS: Amoxicillin/Potassium Clav 875 MG TAB PO SCH ×2 (08:29→20:36)
[2017-05-16] MEDS: guaiFENesin ER 600 MG TAB PO SCH ×2 (08:29→20:38)
[2017-05-16] MEDS: Enoxaparin Sodium 40 MG/0.4 ML SYRINGE SC SCH (08:31)
--- NOTE | 2017-05-16 11:41 | PDOC.PN ---
- Subjective Encounter Start Date: 05/16/17 Encounter Start Time: 11:35 Subjective: f/u s/p acute/chronic hypoxic resp failure, aspiration pneumonia currently -: on Augmentin. Still with O2 requirement 3L/min NC. Overall feeling better -: and tolerating po intake. - Objective Resuscitation Status: Resuscitation Status FULL:Full Resuscitation MAR Reviewed: Yes Vital Signs & Weight: Vital Signs (12 hours) Temp Pulse Resp BP BP BP Pulse Ox 05/16/17 11:26 97.5 F L 79 20 175/87 H 05/16/17 08:28 126/59 L 05/16/17 08:00 97.7 F 65 16 126/59 L 95 05/16/17 06:43 67 20 100 05/16/17 06:39 67 20 100 05/16/17 03:57 98.4 F 68 16 112/57 L 99 05/16/17 02:32 157/84 H 05/16/17 00:52 179/96 H 05/16/17 00:30 97.8 F 88 17 179/96 H 100 Weight Weight 112 lb 12.8 oz Most Recent Monitor Data Heart Rate from ECG 74 NIBP 165/80 NIBP BP-Mean 101 Respiration from ECG 19 SpO2 97 I&O: 05/15/17 05/16/17 05/17/17 06:59 06:59 06:59 Intake Total 1220 1860 Output Total 1200 300 Balance 20 1560 Result Diagrams: 05/14/17 05:40 05/14/17 05:40 Additional Labs: Microbiology 05/12/17 15:11 Urine negron catheter Urine Culture - Final NO GROWTH AT 36 HOURS 05/11/17 14:50 Bronchial Washing Respiratory Culture - Final Haemophilus influenzae 05/11/17 15:59 Venous blood - Right Foot Blood Culture - Preliminary NO GROWTH AT 48 HOURS 05/11/17 15:42 Central Line - Right external jugular vein Blood Culture - Preliminary NO GROWTH AT 48 HOURS Radiology Reviewed by me: Yes (PCXR 05/14/17 - patchy RLL infiltrate) EKG Reviewed by me: Yes (Tele - SR in 70's) Phys Exam - Physical Examination Constitutional: NAD HEENT: PERRLA, oral pharynx no lesions Neck: no JVD, supple wheezing in bilat lung sanchez Cardiovascular: RRR Gastrointestinal: soft, non-tender, no distention, positive bowel sounds Musculoskeletal: no edema, pulses present Neurological: normal sensation, moves all 4 limbs Psychiatric: A&O x 3 Skin: normal turgor, cap refill <2 seconds Dx/Plan (1) Acute and chronic respiratory failure with hypoxia Code(s): J96.21 - ACUTE AND CHRONIC RESPIRATORY FAILURE WITH HYPOXIA Status: Acute Comment: O2 requirement persists 3L/min, likely will need home O2 setup , continue pulmonary support, Duonebs, Prednisone d/c'd (2) Aspiration pneumonia Code(s): J69.0 - PNEUMONITIS DUE TO INHALATION OF FOOD AND VOMIT Status: Acute Qualifiers: Laterality: right Comment: Continue Augmentin 875mg BID, O2, Duonebs (3) NSTEMI (non-ST elevated myocardial infarction) Code(s): I21.4 - NON-ST ELEVATION (NSTEMI) MYOCARDIAL INFARCTION Status: Acute Comment: Continue med mgmt, ASA/Plavix/Lipitor/Lisinopril (4) Tobacco abuse Code(s): Z72.0 - TOBACCO USE Status: Chronic Comment: Smoking cessation resources prior to d/c (5) Ischemic cardiomyopathy Code(s): I25.5 - ISCHEMIC CARDIOMYOPATHY Status: Chronic Comment: EF 35-40% , continue Lasix, ASA/Plavix (6) COPD (chronic obstructive pulmonary disease) Status: Chronic Comment: Stable, no exacerbation now,. CO2 normal. Likely will need home O2 (7) Septic shock Code(s): A41.9 - SEPSIS, UNSPECIFIED ORGANISM; R65.21 - SEVERE SEPSIS WITH SEPTIC SHOCK Status: Resolved Comment: Resolved Now, off of Levofed - Plan continue antibiotics, long term care social worker, respiratory therapy, out of bed/ambulate , DVT proph w/SCDs Stable overall -: Continue Augmentin -: Prednisone d/c'd -: Home O2 coordination -: Chest Physiotherapy * CM consult for dispo planning * Likely home in am 05/17/17
--- NOTE | 2017-05-16 14:05 | PRG ---
DATE OF SERVICE: 05/16/2017 SUBJECTIVE: The patient feels like she is not getting better fast enough. PHYSICAL EXAMINATION: VITAL SIGNS: Temperature 97.5, pulse 79, blood pressure 175/87. HEENT: Unremarkable. NECK: No JVD. LUNGS: Mild end-expiratory wheezing bilaterally. CARDIAC: S1 and S2 regular. ABDOMEN: Soft. EXTREMITIES: No edema. ASSESSMENT: 1. Status post aspiration of food contents. 2. Chronic obstructive pulmonary disease exacerbation. PLAN: The patient is slowly improving from a respiratory standpoint. She will continue antibiotics, nebulization treatments and oral steroids. My hope is that she can be discharged home soon.
[2017-05-16] MEDS: Nicotine 21 MG PATCH TOP SCH (15:29)
--- NOTE | 2017-05-16 18:03 | PDOC.CTH ---
Cardiology Progress Note - Subjective No new issues. No chest pain. - Objective Vital Signs Temp Pulse Resp BP BP BP Pulse Ox 05/16/17 13:30 84 20 05/16/17 13:27 85 143/84 H 05/16/17 13:25 84 20 05/16/17 12:28 175/87 H 05/16/17 11:26 97.5 F L 79 20 175/87 H 05/16/17 08:28 126/59 L 05/16/17 08:00 97.7 F 65 16 126/59 L 95 05/16/17 06:43 67 20 100 05/16/17 06:39 67 20 100 Weight 112 lb 12.8 oz 05/15/17 05/16/17 05/17/17 06:59 06:59 06:59 Intake Total 1220 1860 Output Total 1200 300 Balance 20 1560 - Physical Examination General/Neuro: alert & oriented x3, NAD Neck: no JVD present Lungs: CTA, unlabored respirations Heart: RRR Abdomen: NT/ND Extremities: other: (no edema) - Telemetry Telemetry Rhythm: NSR - Labs Result Diagrams: 05/14/17 05:40 05/14/17 05:40 Troponin/CKMB CK-MB (CK-2) 15.0 ng/mL (0-6.6) H* 05/11/17 10:51 Troponin I 7.193 ng/mL (< 0.028) H* 05/11/17 16:49 - Assessment/Plan 1, NSTEMI 2. Pulmonary HTN 3. COPD 4. Tobacco abuse 5. Hypokalemia PLAN: - Continue conservative therapy for now. - Aspirin/statin/ACEI/ Plavix, no BB due to COPD. - Replace K.
[2017-05-16] MEDS: ALPRAZolam 0.25 MG TAB PO PRN (20:42)
[2017-05-16] MEDS: traMADol HCl 50 MG TAB PO PRN (23:01)
[2017-05-17] MEDS: Gabapentin 100 MG CAP PO SCH ×3 (08:16→20:24)
[2017-05-17] MEDS: Amoxicillin/Potassium Clav 875 MG TAB PO SCH ×2 (08:16→20:24)
[2017-05-17] MEDS: Lisinopril 10 MG TAB PO SCH ×2 (08:16→20:26)
[2017-05-17] MEDS: Clopidogrel Bisulfate 75 MG TAB PO SCH (08:16)
[2017-05-17] MEDS: Atorvastatin Calcium 40 MG TAB PO SCH (08:17)
[2017-05-17] MEDS: guaiFENesin ER 600 MG TAB PO SCH ×2 (08:17→20:28)
[2017-05-17] MEDS: Furosemide 40 MG TAB PO SCH (08:17)
[2017-05-17] MEDS: Enoxaparin Sodium 40 MG/0.4 ML SYRINGE SC SCH (08:18)
[2017-05-17] MEDS: HYDROcodone/Acetaminophen 5/325 mg Tablet PO PRN ×4 (08:22→22:16)
--- NOTE | 2017-05-17 12:17 | PDOC.PN ---
- Subjective Encounter Start Date: 05/17/17 Encounter Start Time: 12:05 Subjective: f/u for acute resp failure and aspiration pna on Augmentin and still -: with O2 requirement 2L/min NC. Some abd complaints but reflux -: improved with Protonix. - Objective Resuscitation Status: Resuscitation Status FULL:Full Resuscitation MAR Reviewed: Yes Vital Signs & Weight: Vital Signs (12 hours) Temp Pulse Resp BP BP Pulse Ox 05/17/17 08:10 97.7 F 66 16 177/87 H 100 05/17/17 07:40 87 16 97 05/17/17 07:00 97 16 100 05/17/17 04:16 98.7 F 60 16 156/80 H 93 L Weight Weight 114 lb 3.2 oz Most Recent Monitor Data Heart Rate from ECG 74 NIBP 165/80 NIBP BP-Mean 101 Respiration from ECG 19 SpO2 97 I&O: 05/16/17 05/17/17 05/18/17 06:59 06:59 06:59 Intake Total 1860 810 Output Total 300 400 Balance 1560 410 Result Diagrams: 05/14/17 05:40 05/14/17 05:40 Additional Labs: Microbiology 05/12/17 15:11 Urine negron catheter Urine Culture - Final NO GROWTH AT 36 HOURS 05/11/17 14:50 Bronchial Washing Respiratory Culture - Final Haemophilus influenzae 05/11/17 15:59 Venous blood - Right Foot Blood Culture - Preliminary NO GROWTH AT 48 HOURS 05/11/17 15:42 Central Line - Right external jugular vein Blood Culture - Preliminary NO GROWTH AT 48 HOURS EKG Reviewed by me: Yes (Tele - Sinus bradycardia) Phys Exam - Physical Examination Constitutional: NAD HEENT: PERRLA, oral pharynx no lesions Neck: no JVD, supple diminished in bases Cardiovascular: RRR Gastrointestinal: soft, non-tender, no distention, positive bowel sounds Musculoskeletal: no edema, pulses present Neurological: normal sensation, moves all 4 limbs Psychiatric: A&O x 3 Skin: normal turgor, cap refill <2 seconds Dx/Plan (1) Acute and chronic respiratory failure with hypoxia Code(s): J96.21 - ACUTE AND CHRONIC RESPIRATORY FAILURE WITH HYPOXIA Status: Acute Comment: O2 requirement persists 2L/min, likely will need home O2 setup , continue pulmonary support, Duonebs, Prednisone d/c'd (2) Aspiration pneumonia Code(s): J69.0 - PNEUMONITIS DUE TO INHALATION OF FOOD AND VOMIT Status: Acute Qualifiers: Laterality: right Comment: Continue Augmentin 875mg BID, O2, Duonebs, improved (3) NSTEMI (non-ST elevated myocardial infarction) Code(s): I21.4 - NON-ST ELEVATION (NSTEMI) MYOCARDIAL INFARCTION Status: Acute Comment: Continue med mgmt, ASA/Plavix/Lipitor/Lisinopril, add Coreg 3.125mg BID (4) Tobacco abuse Code(s): Z72.0 - TOBACCO USE Status: Chronic Comment: Smoking cessation resources prior to d/c (5) Ischemic cardiomyopathy Code(s): I25.5 - ISCHEMIC CARDIOMYOPATHY Status: Chronic Comment: EF 35-40% , continue Lasix, ASA/Plavix (6) COPD (chronic obstructive pulmonary disease) Status: Chronic Comment: Stable, no exacerbation now,. CO2 normal. Likely will need home O2 (7) Septic shock Code(s): A41.9 - SEPSIS, UNSPECIFIED ORGANISM; R65.21 - SEVERE SEPSIS WITH SEPTIC SHOCK Status: Resolved Comment: Resolved Now, off of Levofed - Plan continue antibiotics, social worker psychiatric, respiratory therapy, out of bed/ambulate , DVT proph w/SCDs Stable currently -: Attempt wean off O2 supplementation -: Consider extending Prednisone coverage -: Continue Augmentin 875mg BID -: CM assisting with dispo planning * Start Coreg 3.125mg BID * Likely home in 24h
--- NOTE | 2017-05-17 13:01 | PRG ---
DATE OF SERVICE: 05/17/2017 SERVICE: Pulmonary Medicine INTERVAL HISTORY: The patient is doing fine from a cardiovascular and respiratory standpoint. She i s breathing very comfortably. She is on 2 liters nasal cannula. She was able to walk around with a little bit of oxygen. Outside of this, she has no specific complaints. She is having a difficult ti me swallowing, particularly solid things. This was discovered previously, but never followed up on. PHYSICAL EXAMINATION: VITAL SIGNS: Afebrile, pulse 66, blood pressure 177/87, respirations 16, saturation 100% on 2 liters nasal cannula. GENERAL: The patient is awake, alert, no apparent distress. LUNGS: Decent air entry. There is a prolonged expiratory phase with wheezing and rhonchi present. Rhonchi clear with cough. HEART: Normal rate, regular. ABDOMEN: Soft, nontender, nondistended. Bowel sounds are positive. MUSCULOSKELETAL: No cyanosis or clubbing. No pitting in the bilateral lower extremities. NEUROLOGIC: Grossly nonfocal. LABORATORY: Bronchial washings are growing Haemophilus influenza. Blood cultures are negative x2. Urine culture is also unremarkable. ASSESSMENT: 1. Acute hypoxic and hypercapnic respiratory failure, resolving. 2. Chronic obstructive pulmonary disease with acute exacerbation. 3. Acute on chronic systolic and diastolic heart failure. 4. Non-ST elevation myocardial infarction. 5. Community-acquired pneumonia following overt aspiration with Haemophilus growing in the culture. 6. Bovine tracheitis (aspiration of hamburger meat). PLAN: The patient is doing absolutely fantastic from a respiratory standpoint. From my perspective, once she completes her antibiotic and steroids, she can be considered for transition out of the hosp ital. She will need to resume her home inhalers. Speech Pathology consultation will be placed today to make certain that the patient does not have any ongoing swallow related issues. If she does, thi s may warrant outpatient investigation. I will continue to follow while the patient remains in the ospital.
--- NOTE | 2017-05-17 14:35 | PDOC.CTH ---
Cardiology Progress Note - Subjective Her Breathing is better with Nebs. She continues to cough sputum with blood. No chest pain. Her biggest complaint is right thoracic pain on the back when she takes a deep breath or coughs or when she lays on the right side. - Objective Vital Signs Temp Pulse Resp BP BP Pulse Ox 05/17/17 14:29 140/86 05/17/17 13:48 88 16 99 05/17/17 13:44 88 16 99 05/17/17 12:30 66 16 167/82 H 100 05/17/17 08:10 97.7 F 66 16 177/87 H 100 05/17/17 07:40 87 16 97 05/17/17 07:00 97 16 100 05/17/17 04:16 98.7 F 60 16 156/80 H 93 L Weight 114 lb 3.2 oz 05/16/17 05/17/17 05/18/17 06:59 06:59 06:59 Intake Total 1860 810 Output Total 300 400 Balance 1560 410 - Physical Examination General/Neuro: alert & oriented x3, NAD Neck: no JVD present Lungs: unlabored respirations, other: (prolongued expiratory phase. ) Heart: RRR Abdomen: NT/ND Extremities: other: (no edema) - Telemetry Telemetry Rhythm: NSR - Labs Result Diagrams: 05/14/17 05:40 05/14/17 05:40 Troponin/CKMB CK-MB (CK-2) 15.0 ng/mL (0-6.6) H* 05/11/17 10:51 Troponin I 7.193 ng/mL (< 0.028) H* 05/11/17 16:49 - Assessment/Plan 1, NSTEMI 2. Pulmonary HTN 3. COPD 4. Tobacco abuse 5. Hypokalemia PLAN: - Continue conservative therapy for now. - Aspirin/statin/ACEI no BB due to COPD. - Will hold Plavix due to continued blood in sputum. - Recheck labs.
[2017-05-17] MEDS: traMADol HCl 50 MG TAB PO PRN ×2 (15:03→20:26)
[2017-05-17] MEDS: Nicotine 21 MG PATCH TOP SCH (15:03)
[2017-05-17] MEDS: Carvedilol 3.125 MG TAB PO SCH (16:41)
[2017-05-17] MEDS: Calcium Carbonate 500 MG ChewTAB PO PRN ×2 (16:50→20:35)
--- NOTE | 2017-05-17 18:02 | PDOC.PN ---
- Subjective Encounter Start Date: 05/17/17 Encounter Start Time: 17:45 Subjective: f/u for acute resp failure and aspiration pna on current Augmentin. -: Ambulating in room and overall feels better. Still requiring O2 2L/min. -: c/o R upper back pain and some blood-tinged sputum. - Objective Resuscitation Status: Resuscitation Status FULL:Full Resuscitation MAR Reviewed: Yes Vital Signs & Weight: Vital Signs (12 hours) Temp Pulse Resp BP BP Pulse Ox 05/17/17 16:40 97.9 F 85 18 146/84 H 96 05/17/17 14:29 140/86 05/17/17 13:48 88 16 99 05/17/17 13:44 88 16 99 05/17/17 12:30 66 16 167/82 H 100 05/17/17 08:10 97.7 F 66 16 177/87 H 100 05/17/17 07:40 87 16 97 05/17/17 07:00 97 16 100 Weight Weight 114 lb 3.2 oz Most Recent Monitor Data Heart Rate from ECG 74 NIBP 165/80 NIBP BP-Mean 101 Respiration from ECG 19 SpO2 97 I&O: 05/16/17 05/17/17 05/18/17 06:59 06:59 06:59 Intake Total 1860 810 Output Total 300 400 Balance 1560 410 Result Diagrams: 05/14/17 05:40 05/14/17 05:40 EKG Reviewed by me: Yes (Tele - SR) Phys Exam - Physical Examination Constitutional: NAD HEENT: PERRLA, oral pharynx no lesions Neck: no JVD, supple basilar coarse sounds Cardiovascular: RRR Gastrointestinal: soft, non-tender, no distention, positive bowel sounds Musculoskeletal: no edema, pulses present Neurological: normal sensation, moves all 4 limbs Psychiatric: A&O x 3 Skin: normal turgor, cap refill <2 seconds Dx/Plan (1) Acute and chronic respiratory failure with hypoxia Code(s): J96.21 - ACUTE AND CHRONIC RESPIRATORY FAILURE WITH HYPOXIA Status: Acute Comment: O2 requirement persists 2L/min, likely will need home O2 setup , continue pulmonary support, Duonebs, Prednisone d/c'd (2) Aspiration pneumonia Code(s): J69.0 - PNEUMONITIS DUE TO INHALATION OF FOOD AND VOMIT Status: Acute Qualifiers: Laterality: right Comment: Continue Augmentin 875mg BID, O2, Duonebs, improved (3) NSTEMI (non-ST elevated myocardial infarction) Code(s): I21.4 - NON-ST ELEVATION (NSTEMI) MYOCARDIAL INFARCTION Status: Acute Comment: Continue med mgmt, ASA/Plavix/Lipitor/Lisinopril, add Coreg 3.125mg BID (4) Tobacco abuse Code(s): Z72.0 - TOBACCO USE Status: Chronic Comment: Smoking cessation resources prior to d/c (5) Ischemic cardiomyopathy Code(s): I25.5 - ISCHEMIC CARDIOMYOPATHY Status: Chronic Comment: EF 35-40% , continue Lasix, ASA/Plavix (6) COPD (chronic obstructive pulmonary disease) Status: Chronic Comment: Stable, no exacerbation now,. CO2 normal. Likely will need home O2 (7) Septic shock Code(s): A41.9 - SEPSIS, UNSPECIFIED ORGANISM; R65.21 - SEVERE SEPSIS WITH SEPTIC SHOCK Status: Resolved Comment: Resolved Now, off of Levofed - Plan * .
[2017-05-17] MEDS ORDERED: predniSONE 20 MG TAB PO SCH (18:15)
[2017-05-17] MEDS: Mometasone/Formoterol 120 PUFF INHALER INH SCH (19:19)
[2017-05-17] MEDS: ALPRAZolam 0.25 MG TAB PO PRN (22:17)
[2017-05-18] MEDS: HYDROcodone/Acetaminophen 5/325 mg Tablet PO PRN ×5 (03:45→23:32)
[2017-05-18 05:41] LABS: Anion Gap 10 mmol/L (10-20); BUN (Urea Nitrogen) 20 mg/dL (9.8-20.1); Calc. Creatinine Clearance 66 mL/min (70-130); Calcium 9.8 mg/dL (7.8-10.44); Carbon Dioxide 33 mmol/L (22-29); Chloride 100 mmol/L (98-107); Estimated GFR-MDRD 74; Glucose 88 mg/dL (70-105); Potassium 5.2 mmol/L (3.5-5.1); Sodium 138 mmol/L (136-145)
[2017-05-18] MEDS: traMADol HCl 50 MG TAB PO PRN ×4 (06:32→20:41)
[2017-05-18] MEDS: Mometasone/Formoterol 120 PUFF INHALER INH SCH ×2 (06:40→19:35)
[2017-05-18] MEDS: Furosemide 40 MG TAB PO SCH (09:01)
[2017-05-18] MEDS: Carvedilol 3.125 MG TAB PO SCH ×2 (09:02→17:32)
[2017-05-18] MEDS: guaiFENesin ER 600 MG TAB PO SCH ×2 (09:02→20:40)
[2017-05-18] MEDS: Gabapentin 100 MG CAP PO SCH ×3 (09:02→20:40)
[2017-05-18] MEDS: Lisinopril 10 MG TAB PO SCH ×2 (09:02→20:40)
[2017-05-18] MEDS: predniSONE 20 MG TAB PO SCH (09:02)
[2017-05-18] MEDS: Atorvastatin Calcium 40 MG TAB PO SCH (09:02)
[2017-05-18] MEDS: Calcium Carbonate 500 MG ChewTAB PO PRN ×2 (09:03→17:35)
[2017-05-18] MEDS: Enoxaparin Sodium 40 MG/0.4 ML SYRINGE SC SCH (09:03)
--- NOTE | 2017-05-18 10:42 | PRG ---
DATE OF SERVICE: 05/18/2017 SERVICE: Pulmonary Medicine. INTERVAL HISTORY: The patient is doing fantastic from a cardiovascular and respiratory standpoint. She denies any shortness of breath or chest discomfort. Whenever she gets weaned off of her oxygen o n to room air, she had minimal desaturation of 88%. She felt a slightly short-winded. As such, it w as placed back on her. We are going to make another attempt today. Otherwise, there have been no ov ernight events. PHYSICAL EXAMINATION: VITAL SIGNS: Afebrile, pulse 62, blood pressure 138/66, respirations 18, saturation 100% on 2 liters nasal cannula. GENERAL: The patient is awake and alert, in no apparent distress. LUNGS: Much improved air entry. There are no longer adventitious sounds, wheezing, rhonchi, or crac kles present. HEART: Normal rate, regular. ABDOMEN: Soft, nontender, nondistended. Bowel sounds are positive. MUSCULOSKELETAL: No cyanosis or clubbing. There is no pitting in the bilateral lower extremities. NEUROLOGIC: Grossly nonfocal. LABORATORY DATA: Potassium 5.2. Basic metabolic profile is otherwise unremarkable. Bronchial washi ngs are growing Haemophilus influenza. Blood cultures x2 are otherwise unremarkable. Urinalysis and urine culture are negative. ASSESSMENT: 1. Acute hypoxic and hypercapnic respiratory failure, resolved. 2. Chronic obstructive pulmonary disease with acute exacerbation. 3. Acute on chronic systolic and diastolic heart failure. 4. Non-ST elevation myocardial infarction. 5. Community-acquired pneumonia following overt aspiration, growing Haemophilus influenza. 6. Bovine tracheitis (aspiration of hamburger meat). PLAN: The patient is doing really quite well. We will try her on room air once again. From my pers pective, she is stable for transition out of the hospital. She may need oxygen for a brief period of time, which can be reassessed in the outpatient basis. Unfortunately, funding is an issue and so gomez shea. I do believe that we can get her back to her baseline, but it is not clear whether or not that re quired oxygen. I will continue to follow while the patient remains in-house for the time being.
[2017-05-18] MEDS: Nicotine 21 MG PATCH TOP SCH (14:48)
[2017-05-18] MEDS ORDERED: Melatonin 3 MG TAB PO PRN (15:32)
--- NOTE | 2017-05-18 15:35 | PDOC.PN ---
- Subjective Encounter Start Date: 05/18/17 Encounter Start Time: 15:20 Subjective: f/u for acute resp failure, aspiration pneumonia on prior O2 at 2L/ min -: now on RA. Ambulating in halls, appetite good. Some cough but -: overall SOB improved. - Objective Resuscitation Status: Resuscitation Status FULL:Full Resuscitation MAR Reviewed: Yes Vital Signs & Weight: Vital Signs (12 hours) Temp Pulse Resp BP BP Pulse Ox 05/18/17 12:00 98.5 F 61 18 150/78 H 93 L 05/18/17 07:58 97.6 F 62 18 138/66 100 05/18/17 07:55 97.6 F 62 18 100 05/18/17 06:41 60 16 05/18/17 04:11 98 05/18/17 04:00 97.9 F 67 12 132/73 99 Weight Weight 115 lb 3.2 oz Most Recent Monitor Data Heart Rate from ECG 74 NIBP 165/80 NIBP BP-Mean 101 Respiration from ECG 19 SpO2 97 I&O: 05/17/17 05/18/17 05/19/17 06:59 06:59 06:59 Intake Total 810 840 Output Total 400 700 Balance 410 140 Result Diagrams: 05/14/17 05:40 05/18/17 04:59 EKG Reviewed by me: Yes (Tele - SR in 50's) Phys Exam - Physical Examination Constitutional: NAD alert, responsive HEENT: PERRLA, oral pharynx no lesions Neck: no JVD, supple scattered coarse sounds occasional wheeze Cardiovascular: RRR Gastrointestinal: soft, non-tender, no distention, positive bowel sounds Musculoskeletal: no edema, pulses present Neurological: normal sensation, moves all 4 limbs Psychiatric: A&O x 3 Skin: normal turgor, cap refill <2 seconds Dx/Plan (1) Acute and chronic respiratory failure with hypoxia Code(s): J96.21 - ACUTE AND CHRONIC RESPIRATORY FAILURE WITH HYPOXIA Status: Acute Comment: RA trial today, may need home O2 setup but no funding, continue pulmonary support, Duonebs, Prednisone 40mg daily (2) Aspiration pneumonia Code(s): J69.0 - PNEUMONITIS DUE TO INHALATION OF FOOD AND VOMIT Status: Acute Qualifiers: Laterality: right Comment: Continue Augmentin 875mg BID, O2, Duonebs, improved (3) NSTEMI (non-ST elevated myocardial infarction) Code(s): I21.4 - NON-ST ELEVATION (NSTEMI) MYOCARDIAL INFARCTION Status: Acute Comment: Continue med mgmt, ASA/Plavix/Lipitor/Lisinopril, add Coreg 3.125mg BID (4) Tobacco abuse Code(s): Z72.0 - TOBACCO USE Status: Chronic Comment: Smoking cessation resources prior to d/c (5) Ischemic cardiomyopathy Code(s): I25.5 - ISCHEMIC CARDIOMYOPATHY Status: Chronic Comment: EF 35-40% , continue Lasix, ASA/Plavix/Lisinopril (6) COPD (chronic obstructive pulmonary disease) Status: Chronic Comment: Stable, no exacerbation now,. CO2 normal. May need home O2 but tolerating RA currently (7) Septic shock Code(s): A41.9 - SEPSIS, UNSPECIFIED ORGANISM; R65.21 - SEVERE SEPSIS WITH SEPTIC SHOCK Status: Resolved Comment: Resolved Now, off of Levofed - Plan continue antibiotics, PT/OT, social services designee, respiratory therapy, out of bed/ ambulate, DVT proph w/SCDs Stable overall -: Continue trial off O2 -: Continue Augmentin and Prednisone -: OOB/ambulate -: Likely home in am * .
--- NOTE | 2017-05-18 17:44 | PDOC.CTH ---
Cardiology Progress Note - Subjective She has noticed a lot of sputum production still but not more blood. She denies any chest pain, tightness, pressure. Her SOB is at baseline. - Objective Vital Signs Temp Pulse Resp BP Pulse Ox 05/18/17 16:00 73 18 150/79 H 94 L 05/18/17 12:00 98.5 F 61 18 150/78 H 93 L 05/18/17 07:58 97.6 F 62 18 138/66 100 05/18/17 07:55 97.6 F 62 18 100 05/18/17 06:41 60 16 Weight 115 lb 3.2 oz 05/17/17 05/18/17 05/19/17 06:59 06:59 06:59 Intake Total 810 840 Output Total 400 700 Balance 410 140 - Physical Examination General/Neuro: alert & oriented x3, NAD Neck: no JVD present Lungs: other: (Reduced breath sounds. ) Heart: RRR Abdomen: NT/ND Extremities: other: (no edema.) - Telemetry Telemetry Rhythm: NSR - Labs Result Diagrams: 05/14/17 05:40 05/18/17 04:59 Troponin/CKMB CK-MB (CK-2) 15.0 ng/mL (0-6.6) H* 05/11/17 10:51 Troponin I 7.193 ng/mL (< 0.028) H* 05/11/17 16:49 - Assessment/Plan 1, NSTEMI 2. Pulmonary HTN 3. COPD 4. Tobacco abuse 5. Hypokalemia PLAN: - Continue conservative therapy for now. - Aspirin/statin/ACEI no BB due to COPD. - Continue to hold Plavix due to continued blood in sputum.
[2017-05-19] MEDS: HYDROcodone/Acetaminophen 5/325 mg Tablet PO PRN ×3 (04:02→12:39)
[2017-05-19] MEDS: Mometasone/Formoterol 120 PUFF INHALER INH SCH (06:58)
[2017-05-19] MEDS: Atorvastatin Calcium 40 MG TAB PO SCH (08:33)
[2017-05-19] MEDS: Calcium Carbonate 500 MG ChewTAB PO PRN (08:33)
[2017-05-19] MEDS: Furosemide 40 MG TAB PO SCH (08:33)
[2017-05-19] MEDS: predniSONE 20 MG TAB PO SCH (08:34)
[2017-05-19] MEDS: Carvedilol 3.125 MG TAB PO SCH (08:34)
[2017-05-19] MEDS: Gabapentin 100 MG CAP PO SCH (08:34)
[2017-05-19] MEDS: Lisinopril 10 MG TAB PO SCH (08:34)
[2017-05-19] MEDS: guaiFENesin ER 600 MG TAB PO SCH (08:34)
[2017-05-19] MEDS: Enoxaparin Sodium 40 MG/0.4 ML SYRINGE SC SCH (08:35)
[2017-05-19] MEDS: traMADol HCl 50 MG TAB PO PRN (11:12)
[2017-05-19 12:39] VITALS: BP 123/65; TEMP 98.6
--- NOTE | 2017-05-20 06:53 | DIS ---
PRIMARY CARE PHYSICIAN: None. The patient sees [facility] in [place]. DATE OF ADMISSION: 05/11/2017 DATE OF DISCHARGE: 05/19/2017 DISCHARGE DIAGNOSES: 1. Acute urinary tract infection. 2. Acute on chronic respiratory failure and hypoxia. 3. Chronic obstructive pulmonary disease with acute exacerbation. 4. Probable aspiration pneumonia. 5. Non-ST elevation myocardial infarction. 6. Ongoing tobacco abuse. 7. Ischemic cardiomyopathy. 8. Chronic systolic congestive heart failure. 9. Septic shock, resolved. CONSULTATIONS: 1. Pulmonary Critical Care, Dr. Victorino Keane. Follow up taken over by Dr. Prashanth Burrell and compl eted by Dr. Keane. 2. Cardiology, Dr. Kemar Medeiros followed by Dr. Fernando Valles. PROCEDURES: 05/13/2017 - Dr. Victorino Keane performed a fiberoptic bronchoscopy with visual airway i nspection bronchoalveolar lavage of the right lower lobe and therapeutic bronchoscopy and removal of foreign body. HISTORY OF PRESENT ILLNESS: Ms. Hu is a 52-year-old female who was in the emergency department on 05/11/2017 after being found unconscious at home. She has known history of COPD, tobacco abuse, a nd use of home oxygen. When she was found down EMS was activated. She was found slumped over in mary ir, not breathing, was immediately intubated. She had a low blood pressure of 50/28 and a normal pul se. Even after intubation, she remained hypoxic at 64% and was emergently transported to the emergen cy department. In the ER, troponin was 1.59, CT scan of the chest was negative for PE and Dr. Medeiros was consulted from the emergency department. Echo showed a stable ejection fraction. The patient was started on Levophed drip, broad spectrum antibiotics and was transferred to the ICU. HOSPITAL COURSE: The patient was seen and examined by Dr. Bj Mckeon and admitted to the ICU. Pulm onary Critical Care and Cardiology were consulted as above. Overnight 05/11/2017 to 05/12/2017, the patient was doing fine from a respiratory standpoint, she was awake, but sleepy on a sedation holiday. Spontaneous breathing trial was begun. By 05/13/2017 the patient continued to improve. She underwent a fiberoptic bronchoscopy that showed aspirated hamburger meat which was removed. Bronchoalveolar lavage right lower lobe was obtained and sent for cultures. She was given broad spectrum antibiotics and continued to improve. She had been extubated overnight 05/12/2017, 05/13/2017 and was doing well. On 05/14/2017 the patient was weak, but more alert and tolerating oxygen. Sats were 97-100% on 2 lit ers and her blood pressure remained stable. On 05/15/2017 Cardiology followed up. She was found to have non-ST elevation UT due to her hypotensi on and septic shock. Continued therapy with aspirin, statin, JUANI inhibitor, Plavix. Beta blockers w ere held due to her COPD. By 05/16/2017 she continued to improve and was taken over by Dr. Meng Gaxiola on 05/16/2017. From to 05/19/2017, she slowly improved and was transferred to the floor. Respiratory status con tinued to improve. She was continued on steroids and transitioned to oral. She continued on antibio tics to complete a 7-day course. By 05/19/2017, she was [facility] There was some difficulty getting her medicines arranged as she has no funding, but [email or web address] to help get her first fill of medicat ions. Once that was obtained, she was stable for discharge with outpatient followup. PHYSICAL EXAMINATION: The patient was seen and examined on the day of discharge. Discharge plan and disposition was discussed with the patient face to face the bedside. DISCHARGE MEDICATIONS: 1. Hydrocodone/APAP 5/325 one to two p.o. q.4h. p.r.n. severe musculoskeletal chest pain. A prescri ption for 40 tablets with no refills. 2. Albuterol sulfate 1.25 mg nebulizer every 6 hours as needed. 3. BC powder 1 packet every 6 hours as needed. 4. Lipitor 40 mg p.o. at bedtime. 5. Coreg 3.25 mg p.o. b.i.d. 6. Lasix 20 mg daily. 7. Neurontin 300 mg daily. 8. Mucinex 1200 mg p.o. b.i.d. 9. DuoNeb 3 mL q.6 hours scheduled. 10. Zestril 10 mg p.o. b.i.d. 11. Mometasone/formoterol 200/5 two puffs inhaled b.i.d. 12. Prednisone 40 mg daily to decrease by 10 mg every 3 days until tapered off. FOLLOWUP APPOINTMENTS 1. Dr. Valles in 2-[address] Burrell in 2-3 weeks. PRIMARY CARE PHYSICIAN: Rachel Yee within 7 days. DISCHARGE CONDITION: Stable. DISPOSITION: Discharged home via private vehicle. She is not requiring home oxygen at this point. DISCHARGE ACTIVITY: Per cardiopulmonary limits. DISCHARGE DIET: Heart healthy recommended. Tobacco cessation recommended.
== END 2017-05-19 13:45 | disposition home or self-care (01) | DRG 853 ==
LOC: ERS 09:48 → CCU 13:31 → 2NO 05-13 12:56
PROVIDERS: ADMIT Family Medicine; ATTEND Family Medicine
PROC: 5A1935Z Respiratory Ventilation, Less than 24 Consecutive Hours (ICD-10-PCS; principal; 2017-05-11)
PROC: 0B9F8ZX Drainage of Right Lower Lung Lobe, Via Natural or Artificial Opening Endoscopic, Diagnostic (ICD-10-PCS; 2017-05-13)
PROC: 0BC68ZZ Extirpation of Matter from Right Lower Lobe Bronchus, Via Natural or Artificial Opening Endoscopic (ICD-10-PCS; 2017-05-13)
DX: A41.9 Sepsis, unspecified organism (principal); I21.4 Non-ST elevation (NSTEMI) myocardial infarction; J96.21 Acute and chronic respiratory failure with hypoxia; J69.0 Pneumonitis due to inhalation of food and vomit; R65.21 Severe sepsis with septic shock; I95.9 Hypotension, unspecified; T17.520A Food in bronchus causing asphyxiation, initial encounter; I27.20 Pulmonary hypertension, unspecified; I50.43 Acute on chronic combined systolic (congestive) and diastolic (congestive) heart failure; J44.0 Chronic obstructive pulmonary disease with (acute) lower respiratory infection; J44.1 Chronic obstructive pulmonary disease with (acute) exacerbation; N39.0 Urinary tract infection, site not specified; F17.210 Nicotine dependence, cigarettes, uncomplicated; E87.6 Hypokalemia; I25.5 Ischemic cardiomyopathy; Z86.73 Personal history of transient ischemic attack (TIA), and cerebral infarction without residual deficits; Z99.81 Dependence on supplemental oxygen; I10 Essential (primary) hypertension; E78.5 Hyperlipidemia, unspecified; I25.10 Atherosclerotic heart disease of native coronary artery without angina pectoris; I50.810 Right heart failure, unspecified; I11.0 Hypertensive heart disease with heart failure
CPT/HCPCS: 36415; 51702; 70450; 71045; 71275; 76705; 80048; 80053; 80076; 80306; 81003; 81015; 82550; 82553; 82805; 83605; 83735; 83880; 84100; 84443; 84484; 85025; 86140; 87040; 87070; 87077; 87086; 87205; 88305; 93005; 93010; 93306; 93798; 94002; 94003; 94640; 94667; 94668; 96365; 96366; 96375; 96376; 99292; A4216; G8978-GP-CJ; G8979-GP-CJ; G8980-GP-CJ; G8987-GO-CJ; G8988-GO-CI; G8996-GN-CI; G8997-GN-CI; J0360; J0456; J0696; J1650; J1940; J1956; J2543; J2704; J2920; J3010; J7050; J7506; J7620